=== PATIENT | female | born 1985 | race Caucasian/White ===

== ENCOUNTER 2016-09-07 21:58 | Observation (INO) ==
--- NOTE | 2016-09-07 22:40 | OB/GYN History & Physical ---
Date of Encounter: 09/07/16 Time of Encounter: 22:40 Assessment and Plan (1) with 24 completed weeks gestation Status: Acute ([id number]), 3 deliveries prior to 20 weeks, 1 viable delivery at 34 weeks with cerclage. 24w 6d Hx incompetent cervix; current cervical cerclage. May consider steroids May consider MgS May consider formal ultrasound to evaluate cervical length. May consider recommendation for follow-up tomorrow with her primary OB SSE is neg x 3. Cvx is closed and long on BME. Bedside u/s showed no funneling , cvx 52mm Will give Brethine 0.25mg sq. (2) contractions Status: Acute as above (3) Incompetence of cervix Status: Acute as above History of Present Illness Chief complaint: labor evaluation HPI: Ms. Fregoso is a 31 year old female presents from home with concerns regarding labor. ([id number]), 3 deliveries before 20weeks with demise, 1 viable delivery at 34w with cerclage. Hx incompetant cervix; current cervical cerclage. 24w 6d; due 22 December. Patient felt waves of contractions onset 11:00 this morning and continuous to presentation. Associated with sharp pain around her cerclage, "it feels like my cerglage is coming out." No vaginal bleeding, fluid, or discharge. OB: Dr. Mancini. [place], [place]. Past Med Surg Social Fam HX - Past Medical History Medical history: other Psychiatric history: no psych history - Social History Smoking Status: Current every day smoker Smokeless Tobacco Status: No Alcohol use: none Drug use: none - Family History Father Adopted: No Living Status: Still Living Hx Family Cardiac Disorders: Yes (heart attack) Hx Family Respiratory Disorders: No Hx Family Cancer: No Hx Family GI Disorders: No Hx Family Genitourinary Disorders: No Hx Family Endocrine Disorder: No Hx Family Musculoskeletal Disorders: No Hx Family Neuromuscular Disorders: No Hx Family Neurologic Disorders: No Hx Family HEENT Disorders: No Hx Family Autoimmune Disorders: No Hx Family Reproductive Disorders: No Hx Family Psychosocial Disorders: No Hx Family Medical Disorders: No Obstetrical History - Pregnancies : 5 Para: 4 Term: 0 : 1 Ab's: 3 Livin Medications and Allergies Budesonide [Entocort EC] 2 cap PO DAILY #10 capdr...er 02/15/16 [Rx] Ciprofloxacin HCl [Cipro] 500 mg PO BID #14 tablet 02/15/16 [Rx] Dicyclomine [Bentyl] 2 cap PO QID PRN #30 capsule 02/15/16 [Rx] MetroNIDAZOLE [Flagyl] 500 mg PO BID #14 tablet 02/15/16 [Rx] Prednisone 02/15/16 [History] Cephalexin [Keflex] 500 mg PO BID #14 capsule 04/28/16 [Rx] Ondansetron ODT [Zofran ODT] 4 mg SL Q6HR #12 tab.rapdis 04/28/16 [Rx] Nitrofurantoin (BID) [Macrobid] 100 mg PO BID #14 capsule 05/10/16 [Rx] Ondansetron ODT [Zofran ODT] 4 mg SL Q8HR PRN #15 tab.rapdis 05/10/16 [Rx] Benzonatate [Tessalon] 200 mg PO TID PRN #18 capsule 07/08/16 [Rx] Allergies No Known Allergies Allergy (Verified 02/15/16 19:06) Review of System OB - Constitutional Constitutional ROS IM: no fever(s), no headache(s) - Cardiovascular Cardiovascular: no dyspnea, no edema - Respiratory Respiratory: cough, no dyspnea - Genitourinary Genitourinary: no dysuria, no vaginal discharge Exam - Constitutional Constitutional: well developed, well nourished, no acute distress - HEENT HEENT: Normocephaly, Mucus Membranes Moist - Neck Neck exam: normal inspection - Lungs Respiratory exam: CTAB - Cardiovascular Cardiovascular exam: RRR, +S1, +S2 - Abdomen Abdomen: Present: bowel sounds normal, gravid, non tender. Absent: guarding noted Results All other labs normal.
[2016-09-07 22:55] LABS: Bilirubin,Urine Negative (Negative); Blood,Urine Negative (Negative); Clarity,Urine Turbid (Clear); Color,Urine Yellow (Yellow); Glucose,Urine (UA) Normal (Normal); Ketones,Urine Negative (Negative); Leukocyte Esterase,Urine Small (Negative); Nitrite,Urine Negative (Negative); Protein,Urine Negative (Neg-Trace); Specific Gravity,Urine 1.018 (1.010-1.025); Urobilinogen,Urine Normal (Normal)
[2016-09-07 22:58] LABS: Bacteria,Urine Moderate per hpf (None-Few); Hyaline Casts,Urine None Seen per lpf (None-Few); Squamous Epithelial Cell,Urine Many per lpf (None-Few)
[2016-09-07 23:18] LABS: Amorphous Sediment,Urine Many (Few); Calcium Oxalate Crystals,Urine Present
[2016-09-07 23:19] LABS: Renal Epithelial Cells,Urine Few per hpf (None-Few); Transitional Epi Cells,Urine Few per hpf (None-Few)
[2016-09-08] MEDS ORDERED: Terbutaline 1 MG/ML VIAL SQ ONE
== END 2016-09-08 01:04 | disposition home or self-care (01) ==
LOC: 1NENULAB
PROVIDERS: ADMIT Obstetrics & Gynecology; ATTEND Obstetrics & Gynecology

== ENCOUNTER 2016-09-15 01:17 | Observation (INO) ==
[2016-09-15 03:19] LABS: Bilirubin,Urine Negative (Negative); Blood,Urine Moderate (Negative); Clarity,Urine Clear (Clear); Color,Urine Yellow (Yellow); Glucose,Urine (UA) Normal (Normal); Ketones,Urine Negative (Negative); Leukocyte Esterase,Urine Negative (Negative); Nitrite,Urine Negative (Negative); Protein,Urine Trace mg/dL (Neg-Trace); Specific Gravity,Urine 1.028 (1.010-1.025); Urobilinogen,Urine Normal (Normal)
[2016-09-15 03:21] LABS: Bacteria,Urine Few per hpf (None-Few); Hyaline Casts,Urine None Seen per lpf (None-Few); Squamous Epithelial Cell,Urine Many per lpf (None-Few)
[2016-09-15] MEDS ORDERED: Ringers Solution, Lactated 1,000 ML IVC SCH (04:00)
--- NOTE | 2016-09-15 07:00 | OB/GYN Progress Note ---
Date of Encounter: 09/15/16 Time of Encounter: 06:54 - Assessment and Plan (1) 26 weeks gestation of Current Visit: Yes Status: Acute Receives care from Dr. Haque (2) Cervical cerclage suture present in second trimester Current Visit: Yes Status: Acute The patient has been receiving progesterone injections but has had an issue with receiving in the last 2 weeks. I advised the patient that if she is unable to receive them due to issues with prescription that she may be able to get vaginal progesterone suppositories mucinous instead. She will call the office to review her options (3) UTI (urinary tract infection) in in second trimester Current Visit: Yes Status: Acute Rocephin IV and IV hydration given. Patient appreciates resolution of symptoms Subjective - Subjective Principal diagnosis: 26 week Interval history: The patient presents for cerclage reporting that she is having sharp stabbing pains in the vaginal area and has had a brownish discharge. She has a cerclage in place and was seen last week. She is a patient of Dr. Haque's and no records are available. She denies loss of fluid. Fetus is active. She is not appreciating contractions. The patient is concerned because she has not her progesterone injections for 2 weeks because her prescription has run out and having issues with her OB office. Antepartum ROS: new complaints, vaginal bleeding, movement normal Objective - Vital Signs Vital Signs: Intake and Output 09/14/16 09/14/16 09/15/16 15:59 23:59 07:59 Other: Weight 72.4 kg Patient Weight 09/15/16 23:59 Weight 72.4 kg - Exam FHR: auscultation normal, category 1 FHR comments: 140s baseline Auscultation: bilateral: normal Abdomen: Present: normal appearance, soft, gravid. Absent: tenderness Comments: Brown d/c seen on panties on arrival, none seen since - Labs Labs: Abnormal lab results Ur Specific [place] 1.028 (1.010-1.025) H 09/15/16 03:00 Urine Blood Moderate (Negative) H 09/15/16 03:00 Urine Microscopic RBC 3-5 per hpf (0-3) H 09/15/16 03:00 Urine Microscopic WBC 5-15 per hpf (0-3) H 09/15/16 03:00 Ur Squamous Epith Cells Many per lpf (None-Few) H 09/15/16 03:00 Ur Culture Indicated? YES (NO) A 09/15/16 03:00
== END 2016-09-15 07:14 | disposition home or self-care (01) ==
LOC: 1NENULAB
PROVIDERS: ADMIT Obstetrics & Gynecology; ATTEND Obstetrics & Gynecology

== ENCOUNTER → 2016-11-08 23:39 | Observation (INO) ==
[2016-11-08 22:44] LABS: Bilirubin,Urine Small (Negative); Blood,Urine Negative (Negative); Clarity,Urine Cloudy (Clear); Color,Urine Yellow (Yellow); Glucose,Urine (UA) Normal (Normal); Ketones,Urine Negative (Negative); Leukocyte Esterase,Urine Moderate (Negative); Nitrite,Urine Negative (Negative); Protein,Urine 30 mg/dL (Neg-Trace); Specific Gravity,Urine 1.025 (1.010-1.025); Urobilinogen,Urine Normal (Normal)
[2016-11-08 22:46] LABS: Bacteria,Urine Many per hpf (None-Few); Hyaline Casts,Urine None Seen per lpf (None-Few); Squamous Epithelial Cell,Urine Many per lpf (None-Few); WBC,Urine 30-50 per hpf (0-3)
[2016-11-08 22:56] LABS: Amorphous Sediment,Urine Few (Few)
--- NOTE | 2016-11-08 23:42 | OB Labor Progress Note ---
Date of Encounter: 11/08/16 Time of Encounter: 23:40 Labor Progress Note - Subjective Subjective: patient presented to L and D for PPROM eval, patient evaluated and found not to be ruptured, patient also has a cerclage, NST reactive, counseled to follow up Rebecca
== END | disposition home or self-care (01) ==
LOC: 1NENULAB
PROVIDERS: ADMIT Student in an Organized Health Care Education/Training Program; ATTEND Student in an Organized Health Care Education/Training Program

== ENCOUNTER → 2016-12-13 20:50 | Observation (INO) ==
--- NOTE | 2016-12-13 20:40 | OB/GYN Progress Note ---
Date of Encounter: 12/13/16 Time of Encounter: 20:38 - Assessment and Plan (1) False labor Current Visit: Yes Status: Acute Subjective - Subjective Principal diagnosis: 38 weeks 5 days, possible rupture of membranes Interval history: Pt presents with possible rupture of membranes this am and pressure. +gfm, no vb or lof Objective - Vital Signs Vital Signs: Intake and Output 12/13/16 12/13/16 12/13/16 07:59 15:59 23:59 Other: Weight 76 kg Patient Weight 12/13/16 23:59 Weight 76 kg - Exam FHR: category 1 Auscultation: bilateral: normal Abdomen: Present: normal appearance Cervical dilation: 3 Cervix effacement: 80 station: -2 Comments: SSE is neg for pool and nitrazine
== END | disposition home or self-care (01) ==
LOC: 1NENULAB
PROVIDERS: ADMIT Obstetrics & Gynecology; ATTEND Obstetrics & Gynecology

== ENCOUNTER 2018-01-26 23:36 | Observation (INO) ==
[2018-01-27] MEDS ORDERED: Isovue-370 500 ML INFUS..BTL IV ONE (01:59)
--- NOTE | 2018-01-27 02:05 | Emergency Department Note ---
Disposition Clinical Impression: Phlegmon Abdominal pain Qualifiers: Abdominal location: lower abdomen, unspecified Qualified Code(s): R10.30 - Lower abdominal pain, unspecified Disposition: Still a Patient Condition: Fair Referrals: Erick Johns MD [Primary Care Provider] - Forms: ED Satisfaction Letter, Work/School Release Time of Disposition: 05:54 Abdominal Pain HPI - General Chief Complaint: ED Abdominal Pain Stated Complaint: ABD Pain Time Seen by Provider: 01/27/18 01:31 Source: patient Mode of arrival: ambulatory Limitations: no limitations Nursing Notes Reviewed: Yes Vital Signs Reviewed: Yes - History of Present Illness HPI Narrative: Nontoxic-appearing 32-year-old female presents for evaluation of diffuse lower abdominal pain and cramping. Symptoms began approximate 7 days ago. On 01/23/18 , she appeared at this emergency department for evaluation. At that time, she underwent laboratory and urinalysis testing which revealed a mild urinary tract infection. She does have a history of Crohn's. At the time of discharge on that day, she was given a three-day supply of Bactrim DS as well as a six-day burst of prednisone given her history of Crohn's. She states that the pain has worsened since that time. She denies any fever, chills, nausea, vomiting, urinary symptoms, vaginal bleeding, or vaginal discharge but does complain of some pelvic pressure that began earlier today. She denies any aggravating or alleviating factors for this pain. Pt Subjective Complaint: abdominal pain Onset (ago): day(s) (7) Location: LLQ, RLQ, suprapubic Pain Severity: moderate Pain Scale: 5 Quality: cramping Radiation: none Migration to: no migration Improves with: nothing Worsens with: nothing Associated symptoms: Denies: nausea, vomiting, diarrhea, fever, chills, constipation, dysuria, hematemesis, hematochezia, melena, hematuria Treatments prior to arrival: other - Related Data Home Medications Medication Instructions Recorded Confirmed Multivitamin [Flintstones] 1 each PO DAILY 12/13/16 12/13/16 Previous Rx's Medication Instructions Recorded Ibuprofen [Motrin] 800 mg PO Q8HR #30 tablet 06/04/17 Sulfamethoxazole/Trimeth DS 1 each PO BID #14 tablet 06/04/17 [Bactrim DS] Tramadol HCl [Ultram] 50 mg PO QID PRN #16 tab 06/04/17 Sulfamethoxazole/Trimeth DS 1 each PO BID 3 Days tablet 01/23/18 [Bactrim DS] predniSONE [PredniSONE] 40 mg PO DAILY 6 Days tablet 01/23/18 Allergies Allergy/AdvReac Type Severity Reaction Status Date / Time No Known Allergies Allergy Verified 01/26/18 23:50 All systems ED: reviewed and negative except as stated. Review of Systems: As Per HPI Constitutional: Denies: fever, chills, weakness, weight change Eyes: Denies: eye pain, eye discharge, vision change ENT ED: Denies: ear pain, throat pain, dental pain, hearing loss, epistaxis, congestion, dysphagia Cardiovascular: Denies: chest pain, palpitations, dyspnea on exertion, edema, syncope Respiratory: Denies: cough, dyspnea, wheezes, hemoptysis, stridor Gastrointestinal: Reports: as per HPI, abdominal pain. Denies: nausea, vomiting , diarrhea, constipation, hematemesis, melena, hematochezia Genitourinary: Denies: dysuria, frequency, hematuria, discharge Musculoskeletal: Denies: back pain, neck pain, arthralgia, myalgia Integumentary: Denies: rash, abrasion, lesions Neurological: Denies: headache, weakness, numbness, paresthesias, confusion, abnormal gait, vertigo Psychiatric: Denies: anxiety, depression, suicidal thoughts, homicidal thoughts , auditory hallucinations, visual hallucinations Endocrine: Denies: fatigue Hematological/Lymphatic: Denies: easy bleeding, easy bruising Allergic/Immunologic: Denies: facial swelling, urticaria Abdominal Pain PMH - Past Medical History Medical history: Reports: no medical history, other Female Surgical History: Reports: other YARN SALVAGER history: Reports: no YARN SALVAGER history Psychiatric history: Reports: no psych history - Social History Smoking status: Current every day smoker Alcohol use: Reports: none Drug use: Reports: none Physical Exam - General Limitations: no limitations General appearance: alert, in no apparent distress - Head Head exam: atraumatic, normocephalic, normal inspection - Eye Eye exam: Present: normal appearance, PERRL, EOMI. Absent: nystagmus - ENT ENT exam: mucous membranes moist - Neck Neck exam: Present: normal inspection, full ROM, trachea midline - Chest Chest inspection: Present: normal inspection, symmetric chest wall rise - Respiratory Respiratory exam: Present: normal lung sounds bilaterally - Cardiovascular Cardiovascular exam: Present: regular rate, normal rhythm, normal heart sounds - Abdominal Exam Abdominal exam: Present: soft, tenderness, normal bowel sounds. Absent: distention, guarding, rebound, rigidity Abdominal tenderness: Present: RLQ, LLQ, suprapubic, moderate - Female Bathing Suit Maker present during exam: Yes (BENJAMIN Rodrigues) External Exam: Present: normal external exam. Absent: erythema, bleeding, lesions Speculum Exam: Present: vaginal discharge (yellowish/white discharge noted in the vaginal vault), cervical discharge (Yellow/white cervical discharge noted). Absent: erythema, vaginal bleeding Bimanual Exam: Present: cervical motion tenderness, right adnexal tenderness, left adnexal tenderness. Absent: adnexal mass - Extremities Exam Extremities exam: Present: normal inspection, full ROM. Absent: tenderness, pedal edema - Neurological Exam Neurological exam: Present: alert, oriented X3 - Psychiatric Psychiatric exam: Present: normal affect, normal mood - Skin Skin exam: Present: warm, dry, intact, normal color. Absent: rash Course Vital Signs Temperature 98.5 F 01/26/18 23:50 Pulse Rate 106 01/26/18 23:50 Respiratory Rate 16 01/26/18 23:50 Blood Pressure 113/71 01/26/18 23:50 O2 Sat by Pulse Oximetry 98 01/26/18 23:50 Temperature 98.5 F 01/26/18 23:50 Pulse Rate 87 01/27/18 07:04 Respiratory Rate 18 01/27/18 07:04 Blood Pressure 92/54 01/27/18 07:04 O2 Sat by Pulse Oximetry 99 01/27/18 07:04 Oxygen Delivery Oxygen Delivery Room Air Abdominal Pain - Medical Records Medical records reviewed: Yes I reviewed the patient's medical records. - Lab Data Lab results reviewed: Yes I reviewed the patient's lab results. Result diagrams: 01/27/18 03:48 01/27/18 01:30 Lab Results 01/27/18 01/27/18 01/27/18 Range/Units 01:30 01:30 01:30 WBC (4.3-11.1) K/mcL RBC (3.82-4.97) M/mcL Hgb (11.5-15.4) g/dL Hct (35.3-44.9) % MCV (83.0-100.0) fL MCH (28.0-33.3) pg MCHC (31.6-35.5) g/dL RDW (11.5-14.5) % Plt Count (140-400) K/mcL MPV (9.4-12.4) fL Immature Gran % (0-4) % Seg Neutrophils % % Lymphocytes % % Monocytes % % Eosinophils % % Basophils % % Neutrophils # (1.6-8.9) K/mcL Lymphocytes # (0.6-4.6) K/mcL Monocytes # (0.0-1.3) K/mcL Eosinophils # (0.0-0.6) K/mcL Basophils # (0.0-0.2) K/mcL PT 11.5 (9.4-12.1) Seconds INR 1.0 APTT 30.1 (26.0-36.0) Seconds Sodium (136-145) mEq/L Potassium (3.5-5.1) mEq/L Chloride (98-107) mEq/L Carbon Dioxide (23-29) mEq/L BUN (6-20) mg/dL Creatinine (0.60-1.20) mg/dL Est GFR ( Amer) (> 60) Est GFR (Non-Af Amer) (> 60) BUN/Creatinine Ratio (6-26) Glucose (70-105) mg/dL Calculated Osmolality (280-300) Lactic Acid (0.5-2.2) mmol/L Calcium (8.6-10.3) mg/dL Total Bilirubin (0.3-1.0) mg/dL Direct Bilirubin (0.0-0.2) mg/dL Indirect Bilirubin (0.0-1.2) mg/dL AST (13-39) Units/L ALT (7-52) Units/L Alkaline Phosphatase (34-104) Units/L Serum Total Protein (6.4-8.9) g/dL Albumin (3.5-5.7) g/dL Globulin (2.4-3.5) g/dL Albumin/Globulin Ratio (1.1-2.2) Amylase (29-103) Units/L Lipase (11-82) Units/L Urine Color Yellow (Yellow) Urine Clarity Clear (Clear) Urine pH 5.0 (5.0-8.0) pH Units Ur Specific [place] 1.026 H (1.010-1.025) Urine Protein Trace (Neg-Trace) mg/dL Urine Glucose (UA) Normal (Normal) mg/dL Urine Ketones Negative (Negative) mg/dL Urine Blood Negative (Negative) Urine Nitrite Negative (Negative) Urine Bilirubin Small H (Negative) Urine Urobilinogen Normal (Normal) mg/dL Ur Leukocyte Esterase Negative (Negative) Urine Microscopic RBC 0-3 (0-3) per hpf Urine Microscopic WBC 5-15 H (0-3) per hpf Ur Squamous Epith Cells Many H (None-Few) per lpf Calcium Oxalate Crystal Present Urine Bacteria Few (None-Few) per hpf Hyaline Casts None Seen (None-Few) per lpf Urine Mucus Few (Few) Ur Culture Indicated? NO (NO) Urine Test Negative (Negative) Anisa species DNA (Not Detect) Ur C. trach DNA (PCR) (Not Detect) Gardnerella DNA Probe (Not Detect) U N.gonorrhoeae DNA PCR (Not Detect) Trichomonas DNA Probe (Not Detect) Specimen Rejected 01/27/18 01/27/18 01/27/18 Range/Units 01:30 01:30 02:17 WBC (4.3-11.1) K/mcL RBC (3.82-4.97) M/mcL Hgb (11.5-15.4) g/dL Hct (35.3-44.9) % MCV (83.0-100.0) fL MCH (28.0-33.3) pg MCHC (31.6-35.5) g/dL RDW (11.5-14.5) % Plt Count (140-400) K/mcL MPV (9.4-12.4) fL Immature Gran % (0-4) % Seg Neutrophils % % Lymphocytes % % Monocytes % % Eosinophils % % Basophils % % Neutrophils # (1.6-8.9) K/mcL Lymphocytes # (0.6-4.6) K/mcL Monocytes # (0.0-1.3) K/mcL Eosinophils # (0.0-0.6) K/mcL Basophils # (0.0-0.2) K/mcL PT (9.4-12.1) Seconds INR APTT (26.0-36.0) Seconds Sodium 135 L (136-145) mEq/L Potassium 3.9 (3.5-5.1) mEq/L Chloride 105 (98-107) mEq/L Carbon Dioxide 18 L (23-29) mEq/L BUN 10 (6-20) mg/dL Creatinine 0.54 L (0.60-1.20) mg/dL Est GFR ( Amer) > 60 (> 60) Est GFR (Non-Af Amer) > 60 (> 60) BUN/Creatinine Ratio 19 (6-26) Glucose 102 (70-105) mg/dL Calculated Osmolality 279 L (280-300) Lactic Acid (0.5-2.2) mmol/L Calcium 9.7 (8.6-10.3) mg/dL Total Bilirubin 0.3 (0.3-1.0) mg/dL Direct Bilirubin 0.1 (0.0-0.2) mg/dL Indirect Bilirubin 0.2 (0.0-1.2) mg/dL AST 17 (13-39) Units/L ALT 14 (7-52) Units/L Alkaline Phosphatase 95 (34-104) Units/L Serum Total Protein 7.3 (6.4-8.9) g/dL Albumin 4.0 (3.5-5.7) g/dL Globulin 3.3 (2.4-3.5) g/dL Albumin/Globulin Ratio 1.2 (1.1-2.2) Amylase 31 (29-103) Units/L Lipase 34 (11-82) Units/L Urine Color (Yellow) Urine Clarity (Clear) Urine pH (5.0-8.0) pH Units Ur Specific [place] (1.010-1.025) Urine Protein (Neg-Trace) mg/dL Urine Glucose (UA) (Normal) mg/dL Urine Ketones (Negative) mg/dL Urine Blood (Negative) Urine Nitrite (Negative) Urine Bilirubin (Negative) Urine Urobilinogen (Normal) mg/dL Ur Leukocyte Esterase (Negative) Urine Microscopic RBC (0-3) per hpf Urine Microscopic WBC (0-3) per hpf Ur Squamous Epith Cells (None-Few) per lpf Calcium Oxalate Crystal Urine Bacteria (None-Few) per hpf Hyaline Casts (None-Few) per lpf Urine Mucus (Few) Ur Culture Indicated? (NO) Urine Test (Negative) Anisa species DNA (Not Detect) Ur C. trach DNA (PCR) NOT DETECTED (Not Detect) Gardnerella DNA Probe (Not Detect) U N.gonorrhoeae DNA PCR NOT DETECTED (Not Detect) Trichomonas DNA Probe (Not Detect) Specimen Rejected Clotted 01/27/18 01/27/18 01/27/18 Range/Units 02:49 03:48 03:48 WBC 10.9 (4.3-11.1) K/mcL RBC 3.52 L (3.82-4.97) M/mcL Hgb 10.6 L (11.5-15.4) g/dL Hct 32.2 L (35.3-44.9) % MCV 91.5 (83.0-100.0) fL MCH 30.1 (28.0-33.3) pg MCHC 32.9 (31.6-35.5) g/dL RDW 13.3 (11.5-14.5) % Plt Count 331 (140-400) K/mcL MPV 9.8 (9.4-12.4) fL Immature Gran % 0.2 (0-4) % Seg Neutrophils % 61.2 % Lymphocytes % 29.4 % Monocytes % 6.0 % Eosinophils % 2.7 % Basophils % 0.5 % Neutrophils # 6.7 (1.6-8.9) K/mcL Lymphocytes # 3.2 (0.6-4.6) K/mcL Monocytes # 0.7 (0.0-1.3) K/mcL Eosinophils # 0.3 (0.0-0.6) K/mcL Basophils # 0.1 (0.0-0.2) K/mcL PT (9.4-12.1) Seconds INR APTT (26.0-36.0) Seconds Sodium (136-145) mEq/L Potassium (3.5-5.1) mEq/L Chloride (98-107) mEq/L Carbon Dioxide (23-29) mEq/L BUN (6-20) mg/dL Creatinine (0.60-1.20) mg/dL Est GFR ( Amer) (> 60) Est GFR (Non-Af Amer) (> 60) BUN/Creatinine Ratio (6-26) Glucose (70-105) mg/dL Calculated Osmolality (280-300) Lactic Acid 1.2 (0.5-2.2) mmol/L Calcium (8.6-10.3) mg/dL Total Bilirubin (0.3-1.0) mg/dL Direct Bilirubin (0.0-0.2) mg/dL Indirect Bilirubin (0.0-1.2) mg/dL AST (13-39) Units/L ALT (7-52) Units/L Alkaline Phosphatase (34-104) Units/L Serum Total Protein (6.4-8.9) g/dL Albumin (3.5-5.7) g/dL Globulin (2.4-3.5) g/dL Albumin/Globulin Ratio (1.1-2.2) Amylase (29-103) Units/L Lipase (11-82) Units/L Urine Color (Yellow) Urine Clarity (Clear) Urine pH (5.0-8.0) pH Units Ur Specific [place] (1.010-1.025) Urine Protein (Neg-Trace) mg/dL Urine Glucose (UA) (Normal) mg/dL Urine Ketones (Negative) mg/dL Urine Blood (Negative) Urine Nitrite (Negative) Urine Bilirubin (Negative) Urine Urobilinogen (Normal) mg/dL Ur Leukocyte Esterase (Negative) Urine Microscopic RBC (0-3) per hpf Urine Microscopic WBC (0-3) per hpf Ur Squamous Epith Cells (None-Few) per lpf Calcium Oxalate Crystal Urine Bacteria (None-Few) per hpf Hyaline Casts (None-Few) per lpf Urine Mucus (Few) Ur Culture Indicated? (NO) Urine Test (Negative) Anisa species DNA Not Detected (Not Detect) Ur C. trach DNA (PCR) (Not Detect) Gardnerella DNA Probe Not Detected (Not Detect) U N.gonorrhoeae DNA PCR (Not Detect) Trichomonas DNA Probe Not Detected (Not Detect) Specimen Rejected - Radiology Data Radiology results reviewed: Yes I reviewed the patient's radiology results. S.B.A.R. - S.B.A.R. Situation: Demographics, MOA Background: Presenting Complaint, Relevant PMH, Meds, & Allergies Assessment: Vital Signs, Course and respsone to treatment, Exam Concerns, Patient/Family Expectation, Pertinant Lab Results, Outstanding Labs Recommendation: Barrier(s) to disposition, Recommendation based on pending studies, treatments, or consults S.B.A.R. Report Given to: Flaco Hood CNP S.B.A.R. Repor Time: 06:00 Attestation Statement - Attestation Attestation: I, Fermín Wilkins DO have provided [id number] time during the care of this patient. Detailed review the presentation, symptoms, medical history were discussed and reviewed with the mid-level provider Mark Cuellar PA-C/NADER. Medical intervention labs and imaging studies were reviewed in detail. See full documentation of physical exam and course of care in the mid-level provider's note. I agree with the determined course of care, medical intervention and disposition put forth by the mid-level provider. See below documentation for changes or alterations in documentation.
[2018-01-27 02:12] LABS: Bilirubin,Urine Small (Negative); Blood,Urine Negative (Negative); Clarity,Urine Clear (Clear); Color,Urine Yellow (Yellow); Glucose,Urine (UA) Normal (Normal); Ketones,Urine Negative (Negative); Leukocyte Esterase,Urine Negative (Negative); Nitrite,Urine Negative (Negative); Protein,Urine Trace mg/dL (Neg-Trace); Specific Gravity,Urine 1.026 (1.010-1.025); Urobilinogen,Urine Normal (Normal)
[2018-01-27 02:15] LABS: Bacteria,Urine Few per hpf (None-Few); Hyaline Casts,Urine None Seen per lpf (None-Few); Squamous Epithelial Cell,Urine Many per lpf (None-Few)
[2018-01-27 02:20] LABS: Prothrombin Time 11.5 Seconds (9.4-12.1)
[2018-01-27 02:23] LABS: Activated Partial Thrombo Time 30.1 Seconds (26.0-36.0)
[2018-01-27 02:26] LABS: Calcium Oxalate Crystals,Urine Present; Mucus,Urine Few (Few); RBC,Urine 0-3 per hpf (0-3)
[2018-01-27 03:10] LABS: Alanine Aminotransferase 14 Units/L (7-52); Albumin/Globulin Ratio 1.2 (1.1-2.2); Alkaline Phosphatase 95 Units/L (34-104); Amylase 31 Units/L (29-103); Aspartate Amino Transferase 17 Units/L (13-39); BUN/Creatinine Ratio 19 (6-26); Bilirubin,Direct 0.1 mg/dL (0.0-0.2); Bilirubin,Indirect 0.2 mg/dL (0.0-1.2); Bilirubin,Total 0.3 mg/dL (0.3-1.0); Blood Urea Nitrogen 10 mg/dL (6-20); Calcium 9.7 mg/dL (8.6-10.3); Carbon Dioxide 18 mEq/L (23-29); Chloride 105 mEq/L (98-107); Globulin 3.3 g/dL (2.4-3.5); Glucose 102 mg/dL (70-105); Lipase 34 Units/L (11-82); Osmolality,Calculated 279 (280-300); Potassium 3.9 mEq/L (3.5-5.1); Sodium 135 mEq/L (136-145); Total Protein 7.3 g/dL (6.4-8.9); eGFR For Non-African Americans > 60 (> 60)
[2018-01-27 03:55] LABS: Candida DNA Not Detected (Not Detect); Gardnerella DNA Not Detected (Not Detect); Trichomonas DNA Not Detected (Not Detect)
[2018-01-27 04:02] LABS: Basophils # 0.1 K/mcL (0.0-0.2); Basophils % 0.5 %; Eosinophils # 0.3 K/mcL (0.0-0.6); Eosinophils % 2.7 %; Hematocrit 32.2 % (35.3-44.9); Hemoglobin 10.6 g/dL (11.5-15.4); Immature Granulocytes % 0.2 % (0-4); Lymphocytes # 3.2 K/mcL (0.6-4.6); Lymphocytes % 29.4 %; Mean Corpuscular HGB Conc 32.9 g/dL (31.6-35.5); Mean Corpuscular Hemoglobin 30.1 pg (28.0-33.3); Mean Corpuscular Volume 91.5 fL (83.0-100.0); Mean Platelet Volume 9.8 fL (9.4-12.4); Monocytes # 0.7 K/mcL (0.0-1.3); Neutrophils # 6.7 K/mcL (1.6-8.9); Platelet Count 331 K/mcL (140-400); Red Blood Count 3.52 M/mcL (3.82-4.97); Red Cell Distribution Width 13.3 % (11.5-14.5); Segmented Neutrophils % 61.2 %
--- NOTE | 2018-01-27 04:13 | Emergency Department Note ---
Disposition Clinical Impression: Phlegmon Abdominal pain Qualifiers: Abdominal location: lower abdomen, unspecified Qualified Code(s): R10.30 - Lower abdominal pain, unspecified Disposition: Still a Patient Condition: Fair Referrals: Erick Johns MD [Primary Care Provider] - Forms: ED Satisfaction Letter, Work/School Release Time of Disposition: 07:41 General Adult HPI - General Chief complaint: ED Abdominal Pain Stated complaint: ABD Pain Time Seen by Provider: 01/27/18 01:31 Source: patient Mode of arrival: ambulatory Limitations: no limitations - History of Present Illness Pain Scale: 5 - Related Data Home Medications Medication Instructions Recorded Confirmed Multivitamin [Flintstones] 1 each PO DAILY 12/13/16 12/13/16 Previous Rx's Medication Instructions Recorded Ibuprofen [Motrin] 800 mg PO Q8HR #30 tablet 06/04/17 Sulfamethoxazole/Trimeth DS 1 each PO BID #14 tablet 06/04/17 [Bactrim DS] Tramadol HCl [Ultram] 50 mg PO QID PRN #16 tab 06/04/17 Sulfamethoxazole/Trimeth DS 1 each PO BID 3 Days tablet 01/23/18 [Bactrim DS] predniSONE [PredniSONE] 40 mg PO DAILY 6 Days tablet 01/23/18 Allergies Allergy/AdvReac Type Severity Reaction Status Date / Time No Known Allergies Allergy Verified 01/26/18 23:50 Constitutional: Denies: fever, chills, weakness, weight change Eyes: Denies: eye pain, eye discharge, vision change ENT ED: Denies: ear pain, throat pain, dental pain, hearing loss, epistaxis, congestion, dysphagia Cardiovascular: Denies: chest pain, palpitations, dyspnea on exertion, edema, syncope Respiratory: Denies: cough, dyspnea, wheezes, hemoptysis, stridor Gastrointestinal: Reports: as per HPI, abdominal pain. Denies: nausea, vomiting , diarrhea, constipation, hematemesis, melena, hematochezia Genitourinary: Denies: dysuria, frequency, hematuria, discharge Musculoskeletal: Denies: back pain, neck pain, arthralgia, myalgia Integumentary: Denies: rash, abrasion, lesions Neurological: Denies: headache, weakness, numbness, paresthesias, confusion, abnormal gait, vertigo Psychiatric: Denies: anxiety, depression, suicidal thoughts, homicidal thoughts , auditory hallucinations, visual hallucinations Endocrine: Denies: fatigue Hematological/Lymphatic: Denies: easy bleeding, easy bruising Allergic/Immunologic: Denies: facial swelling, urticaria Past Medical History - Past Medical History Medical history: Reports: no medical history, other Surgical history: Reports: no surgical history Psychiatric history: Reports: no psych history RIG MANAGER history: Reports: no RIG MANAGER history - Social History Smoking Status: Current every day smoker Smokeless Tobacco Status: No Alcohol use: Reports: none Drug use: Reports: none Physical Exam - General Limitations: no limitations General appearance: alert, in no apparent distress Course Vital Signs Temperature 98.5 F 01/26/18 23:50 Pulse Rate 106 01/26/18 23:50 Respiratory Rate 16 01/26/18 23:50 Blood Pressure 113/71 01/26/18 23:50 O2 Sat by Pulse Oximetry 98 01/26/18 23:50 Temperature 98.5 F 01/26/18 23:50 Pulse Rate 87 01/27/18 07:04 Respiratory Rate 18 01/27/18 07:04 Blood Pressure 92/54 01/27/18 07:04 O2 Sat by Pulse Oximetry 99 01/27/18 07:04 Oxygen Delivery Oxygen Delivery Room Air Medical Decision Making - Lab Data Result diagrams: 01/27/18 03:48 01/27/18 01:30 Lab Results 01/27/18 01/27/18 01/27/18 Range/Units 01:30 01:30 01:30 WBC (4.3-11.1) K/mcL RBC (3.82-4.97) M/mcL Hgb (11.5-15.4) g/dL Hct (35.3-44.9) % MCV (83.0-100.0) fL MCH (28.0-33.3) pg MCHC (31.6-35.5) g/dL RDW (11.5-14.5) % Plt Count (140-400) K/mcL MPV (9.4-12.4) fL Immature Gran % (0-4) % Seg Neutrophils % % Lymphocytes % % Monocytes % % Eosinophils % % Basophils % % Neutrophils # (1.6-8.9) K/mcL Lymphocytes # (0.6-4.6) K/mcL Monocytes # (0.0-1.3) K/mcL Eosinophils # (0.0-0.6) K/mcL Basophils # (0.0-0.2) K/mcL PT 11.5 (9.4-12.1) Seconds INR 1.0 APTT 30.1 (26.0-36.0) Seconds Sodium (136-145) mEq/L Potassium (3.5-5.1) mEq/L Chloride (98-107) mEq/L Carbon Dioxide (23-29) mEq/L BUN (6-20) mg/dL Creatinine (0.60-1.20) mg/dL Est GFR ( Amer) (> 60) Est GFR (Non-Af Amer) (> 60) BUN/Creatinine Ratio (6-26) Glucose (70-105) mg/dL Calculated Osmolality (280-300) Lactic Acid (0.5-2.2) mmol/L Calcium (8.6-10.3) mg/dL Total Bilirubin (0.3-1.0) mg/dL Direct Bilirubin (0.0-0.2) mg/dL Indirect Bilirubin (0.0-1.2) mg/dL AST (13-39) Units/L ALT (7-52) Units/L Alkaline Phosphatase (34-104) Units/L Serum Total Protein (6.4-8.9) g/dL Albumin (3.5-5.7) g/dL Globulin (2.4-3.5) g/dL Albumin/Globulin Ratio (1.1-2.2) Amylase (29-103) Units/L Lipase (11-82) Units/L Urine Color Yellow (Yellow) Urine Clarity Clear (Clear) Urine pH 5.0 (5.0-8.0) pH Units Ur Specific [place] 1.026 H (1.010-1.025) Urine Protein Trace (Neg-Trace) mg/dL Urine Glucose (UA) Normal (Normal) mg/dL Urine Ketones Negative (Negative) mg/dL Urine Blood Negative (Negative) Urine Nitrite Negative (Negative) Urine Bilirubin Small H (Negative) Urine Urobilinogen Normal (Normal) mg/dL Ur Leukocyte Esterase Negative (Negative) Urine Microscopic RBC 0-3 (0-3) per hpf Urine Microscopic WBC 5-15 H (0-3) per hpf Ur Squamous Epith Cells Many H (None-Few) per lpf Calcium Oxalate Crystal Present Urine Bacteria Few (None-Few) per hpf Hyaline Casts None Seen (None-Few) per lpf Urine Mucus Few (Few) Ur Culture Indicated? NO (NO) Urine Test Negative (Negative) Anisa species DNA (Not Detect) Ur C. trach DNA (PCR) (Not Detect) Gardnerella DNA Probe (Not Detect) U N.gonorrhoeae DNA PCR (Not Detect) Trichomonas DNA Probe (Not Detect) Specimen Rejected 01/27/18 01/27/18 01/27/18 Range/Units 01:30 01:30 02:17 WBC (4.3-11.1) K/mcL RBC (3.82-4.97) M/mcL Hgb (11.5-15.4) g/dL Hct (35.3-44.9) % MCV (83.0-100.0) fL MCH (28.0-33.3) pg MCHC (31.6-35.5) g/dL RDW (11.5-14.5) % Plt Count (140-400) K/mcL MPV (9.4-12.4) fL Immature Gran % (0-4) % Seg Neutrophils % % Lymphocytes % % Monocytes % % Eosinophils % % Basophils % % Neutrophils # (1.6-8.9) K/mcL Lymphocytes # (0.6-4.6) K/mcL Monocytes # (0.0-1.3) K/mcL Eosinophils # (0.0-0.6) K/mcL Basophils # (0.0-0.2) K/mcL PT (9.4-12.1) Seconds INR APTT (26.0-36.0) Seconds Sodium 135 L (136-145) mEq/L Potassium 3.9 (3.5-5.1) mEq/L Chloride 105 (98-107) mEq/L Carbon Dioxide 18 L (23-29) mEq/L BUN 10 (6-20) mg/dL Creatinine 0.54 L (0.60-1.20) mg/dL Est GFR ( Amer) > 60 (> 60) Est GFR (Non-Af Amer) > 60 (> 60) BUN/Creatinine Ratio 19 (6-26) Glucose 102 (70-105) mg/dL Calculated Osmolality 279 L (280-300) Lactic Acid (0.5-2.2) mmol/L Calcium 9.7 (8.6-10.3) mg/dL Total Bilirubin 0.3 (0.3-1.0) mg/dL Direct Bilirubin 0.1 (0.0-0.2) mg/dL Indirect Bilirubin 0.2 (0.0-1.2) mg/dL AST 17 (13-39) Units/L ALT 14 (7-52) Units/L Alkaline Phosphatase 95 (34-104) Units/L Serum Total Protein 7.3 (6.4-8.9) g/dL Albumin 4.0 (3.5-5.7) g/dL Globulin 3.3 (2.4-3.5) g/dL Albumin/Globulin Ratio 1.2 (1.1-2.2) Amylase 31 (29-103) Units/L Lipase 34 (11-82) Units/L Urine Color (Yellow) Urine Clarity (Clear) Urine pH (5.0-8.0) pH Units Ur Specific [place] (1.010-1.025) Urine Protein (Neg-Trace) mg/dL Urine Glucose (UA) (Normal) mg/dL Urine Ketones (Negative) mg/dL Urine Blood (Negative) Urine Nitrite (Negative) Urine Bilirubin (Negative) Urine Urobilinogen (Normal) mg/dL Ur Leukocyte Esterase (Negative) Urine Microscopic RBC (0-3) per hpf Urine Microscopic WBC (0-3) per hpf Ur Squamous Epith Cells (None-Few) per lpf Calcium Oxalate Crystal Urine Bacteria (None-Few) per hpf Hyaline Casts (None-Few) per lpf Urine Mucus (Few) Ur Culture Indicated? (NO) Urine Test (Negative) Anisa species DNA (Not Detect) Ur C. trach DNA (PCR) NOT DETECTED (Not Detect) Gardnerella DNA Probe (Not Detect) U N.gonorrhoeae DNA PCR NOT DETECTED (Not Detect) Trichomonas DNA Probe (Not Detect) Specimen Rejected Clotted 01/27/18 01/27/18 01/27/18 Range/Units 02:49 03:48 03:48 WBC 10.9 (4.3-11.1) K/mcL RBC 3.52 L (3.82-4.97) M/mcL Hgb 10.6 L (11.5-15.4) g/dL Hct 32.2 L (35.3-44.9) % MCV 91.5 (83.0-100.0) fL MCH 30.1 (28.0-33.3) pg MCHC 32.9 (31.6-35.5) g/dL RDW 13.3 (11.5-14.5) % Plt Count 331 (140-400) K/mcL MPV 9.8 (9.4-12.4) fL Immature Gran % 0.2 (0-4) % Seg Neutrophils % 61.2 % Lymphocytes % 29.4 % Monocytes % 6.0 % Eosinophils % 2.7 % Basophils % 0.5 % Neutrophils # 6.7 (1.6-8.9) K/mcL Lymphocytes # 3.2 (0.6-4.6) K/mcL Monocytes # 0.7 (0.0-1.3) K/mcL Eosinophils # 0.3 (0.0-0.6) K/mcL Basophils # 0.1 (0.0-0.2) K/mcL PT (9.4-12.1) Seconds INR APTT (26.0-36.0) Seconds Sodium (136-145) mEq/L Potassium (3.5-5.1) mEq/L Chloride (98-107) mEq/L Carbon Dioxide (23-29) mEq/L BUN (6-20) mg/dL Creatinine (0.60-1.20) mg/dL Est GFR ( Amer) (> 60) Est GFR (Non-Af Amer) (> 60) BUN/Creatinine Ratio (6-26) Glucose (70-105) mg/dL Calculated Osmolality (280-300) Lactic Acid 1.2 (0.5-2.2) mmol/L Calcium (8.6-10.3) mg/dL Total Bilirubin (0.3-1.0) mg/dL Direct Bilirubin (0.0-0.2) mg/dL Indirect Bilirubin (0.0-1.2) mg/dL AST (13-39) Units/L ALT (7-52) Units/L Alkaline Phosphatase (34-104) Units/L Serum Total Protein (6.4-8.9) g/dL Albumin (3.5-5.7) g/dL Globulin (2.4-3.5) g/dL Albumin/Globulin Ratio (1.1-2.2) Amylase (29-103) Units/L Lipase (11-82) Units/L Urine Color (Yellow) Urine Clarity (Clear) Urine pH (5.0-8.0) pH Units Ur Specific [place] (1.010-1.025) Urine Protein (Neg-Trace) mg/dL Urine Glucose (UA) (Normal) mg/dL Urine Ketones (Negative) mg/dL Urine Blood (Negative) Urine Nitrite (Negative) Urine Bilirubin (Negative) Urine Urobilinogen (Normal) mg/dL Ur Leukocyte Esterase (Negative) Urine Microscopic RBC (0-3) per hpf Urine Microscopic WBC (0-3) per hpf Ur Squamous Epith Cells (None-Few) per lpf Calcium Oxalate Crystal Urine Bacteria (None-Few) per hpf Hyaline Casts (None-Few) per lpf Urine Mucus (Few) Ur Culture Indicated? (NO) Urine Test (Negative) Anisa species DNA Not Detected (Not Detect) Ur C. trach DNA (PCR) (Not Detect) Gardnerella DNA Probe Not Detected (Not Detect) U N.gonorrhoeae DNA PCR (Not Detect) Trichomonas DNA Probe Not Detected (Not Detect) Specimen Rejected Attestation Statement - Attestation Attestation: I, Fermín Wilkins DO have provided [id number] time during the care of this patient. Detailed review the presentation, symptoms, medical history were discussed and reviewed with the mid-level provider Mark Cuellar PA-C/BUSINESS CONTINUITY MANAGEMENT DIRECTOR. Medical intervention labs and imaging studies were reviewed in detail. See full documentation of physical exam and course of care in the mid-level provider's note. I agree with the determined course of care, medical intervention and disposition put forth by the mid-level provider. See below documentation for changes or alterations in documentation. 32-year-old female presents to the emergency room for evaluation of abdominal pain. She was seen here 2 days ago for similar issue. She was discharged home after labs are resulted and they are unremarkable. Patient has had progressively worsening pain at this time decided to come back into the emergency room for reevaluation. Vital signs are stable. Lungs are clear heart is regular abdomen is soft patient does have suprapubic and bilateral adnexal discomfort and tenderness. She denies any specific vaginal discharge she has no concern for sexual transmitted diseases this time. test was negative previously. Screening labs including a CBC chemistry urinalysis and test will be ordered at this time as well as CT imaging the abdomen and ultrasound ruling out ovarian cyst versus torsion. Pelvic examination will be completed swabs looking for sexual transmitted diseases bacterial vaginosis. Concern is noted for intra-abdominal pathology including appendicitis tubo-ovarian abscess or ovarian cyst ovarian torsion PID associated transmitted diseases cervicitis this time. Disposition pending the full workup and treatment course. The remainder the physical exam is unremarkable. Pelvic examination completed by the mid-level provider see her documentation. See detailed recommendation physical exam, medical intervention , medical decision-making and disposition in the mid-level provider's note. No current local care pad the patient's treatment course at this time. 0700 Ultrasound is unremarkable for acute signs of ovarian cyst or torsion. No other acute intra-abdominal etiology noted during ultrasound evaluation. CT is concerning for phlegmon versus inflammatory issues:. Patient will be contacted and discussed and reviewed with the on-call surgeon the recommendations will be noted. IV antibiotics and fluids have been given. Blood cultures ready ordered. Disposition to be determined by the daytime physician mid-level provider. No other acute intervention required at this time. Patient otherwise clinically stable. Pain medication has been given
[2018-01-27 04:30] LABS: Chlamydia Trachomatis DNA Ur NOT DETECTED (Not Detect)
[2018-01-27] MEDS ORDERED: MetroNIDAZOLE 500 MG/100 ML 500 MG/100 ML BAG IVPB ONE (06:13)
[2018-01-27] MEDS ORDERED: *HR* FentaNYL (PF) 100 MCG/2 ML VIAL IVP ONE (06:27)
[2018-01-27] MEDS ORDERED: Ketorolac 30 MG/ML VIAL IVP ONE (06:28)
--- NOTE | 2018-01-27 06:38 | Emergency Department Note ---
Disposition Clinical Impression: Phlegmon Abdominal pain Qualifiers: Abdominal location: lower abdomen, unspecified Qualified Code(s): R10.30 - Lower abdominal pain, unspecified Disposition: Admitted As Inpatient Condition: Fair Referrals: Erick Johns MD [Primary Care Provider] - Forms: ED Satisfaction Letter, Work/School Release Abdominal Pain HPI - General Chief Complaint: ED Abdominal Pain Stated Complaint: ABD Pain Time Seen by Provider: 01/27/18 01:31 Source: patient Mode of arrival: ambulatory - History of Present Illness Pt Subjective Complaint: abdominal pain Location: LLQ, RLQ, suprapubic Pain Severity: moderate Pain Scale: 5 Quality: cramping Migration to: no migration Improves with: nothing Worsens with: nothing Associated symptoms: Denies: nausea, vomiting, diarrhea, fever, chills, constipation, dysuria, hematemesis, hematochezia, melena, hematuria - Related Data Home Medications Medication Instructions Recorded Confirmed No Known Home Drugs 01/27/18 01/27/18 Allergies Allergy/AdvReac Type Severity Reaction Status Date / Time No Known Allergies Allergy Verified 01/26/18 23:50 Constitutional: Denies: fever, chills, weakness, weight change Eyes: Denies: eye pain, eye discharge, vision change ENT ED: Denies: ear pain, throat pain, dental pain, hearing loss, epistaxis, congestion, dysphagia Cardiovascular: Denies: chest pain, palpitations, dyspnea on exertion, edema, syncope Respiratory: Denies: cough, dyspnea, wheezes, hemoptysis, stridor Gastrointestinal: Reports: as per HPI, abdominal pain. Denies: nausea, vomiting , diarrhea, constipation, hematemesis, melena, hematochezia Genitourinary: Denies: dysuria, frequency, hematuria, discharge Musculoskeletal: Denies: back pain, neck pain, arthralgia, myalgia Integumentary: Denies: rash, abrasion, lesions Neurological: Denies: headache, weakness, numbness, paresthesias, confusion, abnormal gait, vertigo Psychiatric: Denies: anxiety, depression, suicidal thoughts, homicidal thoughts , auditory hallucinations, visual hallucinations Endocrine: Denies: fatigue Hematological/Lymphatic: Denies: easy bleeding, easy bruising Allergic/Immunologic: Denies: facial swelling, urticaria Abdominal Pain PMH - Past Medical History Medical history: Reports: no medical history, other Female Surgical History: 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: other 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 HAND history: Reports: no SHANK CEMENTER HAND history Psychiatric history: Reports: no psych history - Social History Smoking status: Current every day smoker Alcohol use: Reports: none Drug use: Reports: none Physical Exam - General Limitations: no limitations General appearance: alert, in no apparent distress Course Vital Signs Temperature 98.5 F 01/26/18 23:50 Pulse Rate 106 01/26/18 23:50 Respiratory Rate 16 01/26/18 23:50 Blood Pressure 113/71 01/26/18 23:50 O2 Sat by Pulse Oximetry 98 01/26/18 23:50 Temperature 98.5 F 01/26/18 23:50 Pulse Rate 70 01/27/18 08:03 Respiratory Rate 18 01/27/18 07:04 Blood Pressure 101/72 01/27/18 08:03 O2 Sat by Pulse Oximetry 100 01/27/18 08:03 Oxygen Delivery Oxygen Delivery Room Air Abdominal Pain - MDM Narrative Medical decision making narrative: Received report from Aureliano Cuellar EMERGENCY DISPATCH OPERATOR: 32 year old female with history of Crohn' s disease presents with lower abdominal pain for 2 weeks worsening for 2 days. No nausea/vomiting. No constipation/diarrhea. No chills and fever. Pt follows up with Dr. Garibay for Crohn's disease. Last time colonoscopy was in 2011. Physical exam: diffused lower abdomen tender. Abd CT: possibly with a small area phlegmon. Pt is given IV antibiotics in ER, [facility] general surgeon. 07:45 am, discussed the case with general surgeon Dr. Reddy. He recommended to admit pt to medical floor for IV antibiotics and hydration. He will re-evaluate pt in floor. He also suggested GI consult. Hospitalist ryan. 08:20 am spoke with Hospitalist Dr. Alejandro. pt is accepted. - Lab Data Result diagrams: 01/27/18 03:48 01/27/18 01:30 Lab Results 01/27/18 01/27/18 01/27/18 Range/Units 01:30 01:30 01:30 WBC (4.3-11.1) K/mcL RBC (3.82-4.97) M/mcL Hgb (11.5-15.4) g/dL Hct (35.3-44.9) % MCV (83.0-100.0) fL MCH (28.0-33.3) pg MCHC (31.6-35.5) g/dL RDW (11.5-14.5) % Plt Count (140-400) K/mcL MPV (9.4-12.4) fL Immature Gran % (0-4) % Seg Neutrophils % % Lymphocytes % % Monocytes % % Eosinophils % % Basophils % % Neutrophils # (1.6-8.9) K/mcL Lymphocytes # (0.6-4.6) K/mcL Monocytes # (0.0-1.3) K/mcL Eosinophils # (0.0-0.6) K/mcL Basophils # (0.0-0.2) K/mcL PT 11.5 (9.4-12.1) Seconds INR 1.0 APTT 30.1 (26.0-36.0) Seconds Sodium (136-145) mEq/L Potassium (3.5-5.1) mEq/L Chloride (98-107) mEq/L Carbon Dioxide (23-29) mEq/L BUN (6-20) mg/dL Creatinine (0.60-1.20) mg/dL Est GFR ( Amer) (> 60) Est GFR (Non-Af Amer) (> 60) BUN/Creatinine Ratio (6-26) Glucose (70-105) mg/dL Calculated Osmolality (280-300) Lactic Acid (0.5-2.2) mmol/L Calcium (8.6-10.3) mg/dL Total Bilirubin (0.3-1.0) mg/dL Direct Bilirubin (0.0-0.2) mg/dL Indirect Bilirubin (0.0-1.2) mg/dL AST (13-39) Units/L ALT (7-52) Units/L Alkaline Phosphatase (34-104) Units/L Serum Total Protein (6.4-8.9) g/dL Albumin (3.5-5.7) g/dL Globulin (2.4-3.5) g/dL Albumin/Globulin Ratio (1.1-2.2) Amylase (29-103) Units/L Lipase (11-82) Units/L Urine Color Yellow (Yellow) Urine Clarity Clear (Clear) Urine pH 5.0 (5.0-8.0) pH Units Ur Specific [place] 1.026 H (1.010-1.025) Urine Protein Trace (Neg-Trace) mg/dL Urine Glucose (UA) Normal (Normal) mg/dL Urine Ketones Negative (Negative) mg/dL Urine Blood Negative (Negative) Urine Nitrite Negative (Negative) Urine Bilirubin Small H (Negative) Urine Urobilinogen Normal (Normal) mg/dL Ur Leukocyte Esterase Negative (Negative) Urine Microscopic RBC 0-3 (0-3) per hpf Urine Microscopic WBC 5-15 H (0-3) per hpf Ur Squamous Epith Cells Many H (None-Few) per lpf Calcium Oxalate Crystal Present Urine Bacteria Few (None-Few) per hpf Hyaline Casts None Seen (None-Few) per lpf Urine Mucus Few (Few) Ur Culture Indicated? NO (NO) Urine Test Negative (Negative) Anisa species DNA (Not Detect) Ur C. trach DNA (PCR) (Not Detect) Gardnerella DNA Probe (Not Detect) U N.gonorrhoeae DNA PCR (Not Detect) Trichomonas DNA Probe (Not Detect) Specimen Rejected 01/27/18 01/27/18 01/27/18 Range/Units 01:30 01:30 02:17 WBC (4.3-11.1) K/mcL RBC (3.82-4.97) M/mcL Hgb (11.5-15.4) g/dL Hct (35.3-44.9) % MCV (83.0-100.0) fL MCH (28.0-33.3) pg MCHC (31.6-35.5) g/dL RDW (11.5-14.5) % Plt Count (140-400) K/mcL MPV (9.4-12.4) fL Immature Gran % (0-4) % Seg Neutrophils % % Lymphocytes % % Monocytes % % Eosinophils % % Basophils % % Neutrophils # (1.6-8.9) K/mcL Lymphocytes # (0.6-4.6) K/mcL Monocytes # (0.0-1.3) K/mcL Eosinophils # (0.0-0.6) K/mcL Basophils # (0.0-0.2) K/mcL PT (9.4-12.1) Seconds INR APTT (26.0-36.0) Seconds Sodium 135 L (136-145) mEq/L Potassium 3.9 (3.5-5.1) mEq/L Chloride 105 (98-107) mEq/L Carbon Dioxide 18 L (23-29) mEq/L BUN 10 (6-20) mg/dL Creatinine 0.54 L (0.60-1.20) mg/dL Est GFR ( Amer) > 60 (> 60) Est GFR (Non-Af Amer) > 60 (> 60) BUN/Creatinine Ratio 19 (6-26) Glucose 102 (70-105) mg/dL Calculated Osmolality 279 L (280-300) Lactic Acid (0.5-2.2) mmol/L Calcium 9.7 (8.6-10.3) mg/dL Total Bilirubin 0.3 (0.3-1.0) mg/dL Direct Bilirubin 0.1 (0.0-0.2) mg/dL Indirect Bilirubin 0.2 (0.0-1.2) mg/dL AST 17 (13-39) Units/L ALT 14 (7-52) Units/L Alkaline Phosphatase 95 (34-104) Units/L Serum Total Protein 7.3 (6.4-8.9) g/dL Albumin 4.0 (3.5-5.7) g/dL Globulin 3.3 (2.4-3.5) g/dL Albumin/Globulin Ratio 1.2 (1.1-2.2) Amylase 31 (29-103) Units/L Lipase 34 (11-82) Units/L Urine Color (Yellow) Urine Clarity (Clear) Urine pH (5.0-8.0) pH Units Ur Specific [place] (1.010-1.025) Urine Protein (Neg-Trace) mg/dL Urine Glucose (UA) (Normal) mg/dL Urine Ketones (Negative) mg/dL Urine Blood (Negative) Urine Nitrite (Negative) Urine Bilirubin (Negative) Urine Urobilinogen (Normal) mg/dL Ur Leukocyte Esterase (Negative) Urine Microscopic RBC (0-3) per hpf Urine Microscopic WBC (0-3) per hpf Ur Squamous Epith Cells (None-Few) per lpf Calcium Oxalate Crystal Urine Bacteria (None-Few) per hpf Hyaline Casts (None-Few) per lpf Urine Mucus (Few) Ur Culture Indicated? (NO) Urine Test (Negative) Anisa species DNA (Not Detect) Ur C. trach DNA (PCR) NOT DETECTED (Not Detect) Gardnerella DNA Probe (Not Detect) U N.gonorrhoeae DNA PCR NOT DETECTED (Not Detect) Trichomonas DNA Probe (Not Detect) Specimen Rejected Clotted 01/27/18 01/27/18 01/27/18 Range/Units 02:49 03:48 03:48 WBC 10.9 (4.3-11.1) K/mcL RBC 3.52 L (3.82-4.97) M/mcL Hgb 10.6 L (11.5-15.4) g/dL Hct 32.2 L (35.3-44.9) % MCV 91.5 (83.0-100.0) fL MCH 30.1 (28.0-33.3) pg MCHC 32.9 (31.6-35.5) g/dL RDW 13.3 (11.5-14.5) % Plt Count 331 (140-400) K/mcL MPV 9.8 (9.4-12.4) fL Immature Gran % 0.2 (0-4) % Seg Neutrophils % 61.2 % Lymphocytes % 29.4 % Monocytes % 6.0 % Eosinophils % 2.7 % Basophils % 0.5 % Neutrophils # 6.7 (1.6-8.9) K/mcL Lymphocytes # 3.2 (0.6-4.6) K/mcL Monocytes # 0.7 (0.0-1.3) K/mcL Eosinophils # 0.3 (0.0-0.6) K/mcL Basophils # 0.1 (0.0-0.2) K/mcL PT (9.4-12.1) Seconds INR APTT (26.0-36.0) Seconds Sodium (136-145) mEq/L Potassium (3.5-5.1) mEq/L Chloride (98-107) mEq/L Carbon Dioxide (23-29) mEq/L BUN (6-20) mg/dL Creatinine (0.60-1.20) mg/dL Est GFR ( Amer) (> 60) Est GFR (Non-Af Amer) (> 60) BUN/Creatinine Ratio (6-26) Glucose (70-105) mg/dL Calculated Osmolality (280-300) Lactic Acid 1.2 (0.5-2.2) mmol/L Calcium (8.6-10.3) mg/dL Total Bilirubin (0.3-1.0) mg/dL Direct Bilirubin (0.0-0.2) mg/dL Indirect Bilirubin (0.0-1.2) mg/dL AST (13-39) Units/L ALT (7-52) Units/L Alkaline Phosphatase (34-104) Units/L Serum Total Protein (6.4-8.9) g/dL Albumin (3.5-5.7) g/dL Globulin (2.4-3.5) g/dL Albumin/Globulin Ratio (1.1-2.2) Amylase (29-103) Units/L Lipase (11-82) Units/L Urine Color (Yellow) Urine Clarity (Clear) Urine pH (5.0-8.0) pH Units Ur Specific [place] (1.010-1.025) Urine Protein (Neg-Trace) mg/dL Urine Glucose (UA) (Normal) mg/dL Urine Ketones (Negative) mg/dL Urine Blood (Negative) Urine Nitrite (Negative) Urine Bilirubin (Negative) Urine Urobilinogen (Normal) mg/dL Ur Leukocyte Esterase (Negative) Urine Microscopic RBC (0-3) per hpf Urine Microscopic WBC (0-3) per hpf Ur Squamous Epith Cells (None-Few) per lpf Calcium Oxalate Crystal Urine Bacteria (None-Few) per hpf Hyaline Casts (None-Few) per lpf Urine Mucus (Few) Ur Culture Indicated? (NO) Urine Test (Negative) Anisa species DNA Not Detected (Not Detect) Ur C. trach DNA (PCR) (Not Detect) Gardnerella DNA Probe Not Detected (Not Detect) U N.gonorrhoeae DNA PCR (Not Detect) Trichomonas DNA Probe Not Detected (Not Detect) Specimen Rejected
[2018-01-27] MEDS ORDERED: 0.9 % Sodium Chloride 1,000 ML IVC ONE (07:42)
[2018-01-27] MEDS ORDERED: Ketamine *HR* 15 MG in 0.9 % Sodium Chloride 100 ML IVPB ONE (08:12)
[2018-01-27] MEDS ORDERED: Naloxone 0.4 MG/ML INJ IVP PRN ×2 (09:19→09:21)
[2018-01-27] MEDS ORDERED: Ondansetron 4 MG/2 ML VIAL IVP PRN (09:21)
[2018-01-27] MEDS ORDERED: OXYCODONE Oral CONC 10 MG/0.5 ML ORAL.SYG SL PRN ×2 (09:21)
--- NOTE | 2018-01-27 09:27 | Internal Med History&Physical ---
Date of Encounter: 01/27/18 Time of Encounter: 09:00 Internal Medicine - H&P: HPI Chief complaint: Abdominal pain Admitted From: Home Plans for Post Hospital Care: Home History of present illness: Ms. Fregoso is a 32 year old female present to ER for lower abdominal pain for 2 -3 days. Past medical history is significant for chronic disease. Patient has history of Crohn disease, off medication now. Patient started to have abdominal pain since 2-3 days ago. Pain is constant, sharp, 8-9 out of 10 , worsening after eating. Patient denies fever, nausea, vomiting, or diarrhea. Her last bowel movement was yesterday. Patient has no problem with passing gas. In the emergency room abdominal CT has been done, which shows ileocecitis. Surgical consult was called by emergency room, recommend antibiotic treatment. Patient has severe pain needed IV pain medications. Patient admitted for further management. Past Med Surg Social Fam HX - Past Medical History Medical history: no medical history, other Additional medical history: chrons Psychiatric history: no psych history - Past Surgical History Surgical History: no surgical history Additional surgical history: LEEP, [place] - Social History Smoking Status: Current every day smoker Smokeless Tobacco Status: No Alcohol use: none Drug use: none - Family History Father Adopted: No Family Member Ethnicity: Non- Living Status: Still Living Hx Family Cardiac Disorders: No Hx Family Respiratory Disorders: No Hx Family Cancer: No Hx Family GI Disorders: No Hx Family Endocrine Disorder: No Hx Family Neuromuscular Disorders: No Hx Family Neurologic Disorders: No Hx Family HEENT Disorders: No Hx Family Autoimmune Disorders: No Internal Medicine - H&P: Meds No Known Home Drugs 01/27/18 [History] 3 Allergy/AdvReac Type Severity Reaction Status Date / Time No Known Allergies Allergy Verified 01/26/18 23:50 All Systems PM: A 10-system review of systems was performed and is negative for pertinent findings except as documented above in the HPI. - Constitutional Vitals: Temp Pulse Resp BP Pulse Ox 98.5 F 65 18 100/67 100 01/26/18 23:50 01/27/18 09:16 01/27/18 07:04 01/27/18 09:16 01/27/18 09:16 General appearance: Present: A&O X 3, no acute distress, answers questions appropriately - Head Head exam: Present: atraumatic, normocephalic - Eye Eye exam: Present: PERRL, conjuntiva pink, sclera anicteric Pupils: Present: PERRL - Neck Neck exam general surgery: Present: supple, trachea midline. Absent: lymphadenopathy - Respiratory Respiratory exam: Present: CTAB. Absent: accessory muscle use, rales, rhonchi, wheezes - Cardiovascular Cardiovascular exam: Present: RRR, +S1, +S2. Absent: diastolic murmur, gallop, rubs, systolic murmur - GI/Abdominal GI/Abdominal exam: Present: normal bowel sounds, soft, tenderness (Mild to moderate bilateral lower abdominal tenderness, without rebound or guarding.), no peritoneal signs. Absent: distended - Extremities Exam Extremities exam: Present: warm, radial pulses palpable and symmetrical. Absent : calf tenderness, cyanotic, pedal edema - Neurological Exam Neurological exam: Present: CN II-XII intact, oriented X3, no focal deficits. Absent: pronater drift, facial droop, speech deficit - Skin Skin exam: Present: dry, intact Internal Med - H&P Results - Labs CBC & Chem 7: 01/27/18 03:48 01/27/18 01:30 - Assessment and plan (1) Ovarian cyst Current Visit: Yes Status: Acute Assessment and plan: US pelvis shows ovarian cyst with possible rupture/hemorrhage. Will consult OB/ HEARING SCREENER for further management. Symptomatic treatment for pain at this point. Qualifiers: Laterality: left Qualified Code(s): N83.202 - Unspecified ovarian cyst, left side (2) Ileocolitis Current Visit: Yes Status: Acute Assessment and plan: We will continue Cipro and Flagyl. Keep patient nothing by mouth at this point , IV fluid. Surgical consult. (3) DVT prophylaxis Current Visit: Yes Status: Acute Assessment and plan: Patient is young and ambulating well. No anticoagulation placed at this point. (4) Abdominal pain Current Visit: Yes Status: Acute Assessment and plan: Probably multifactorial. Including chronic disease, ileocetitis and phlegmon, ruptured ovarian cyst. We will keep patient nothing by mouth, IV fluid, IV Cipro and Flagyl. Pain medication for pain. Consult surgery, GI, and supply assistant. Patient has negative liver function tests, lipase, and amylase. Qualifiers: Abdominal location: lower abdomen, unspecified Qualified Code(s): R10.30 - Lower abdominal pain, unspecified (5) Phlegmon Current Visit: Yes Status: Acute Assessment and plan: Management as above (6) Crohn disease Current Visit: Yes Status: Acute Assessment and plan: Consult GI for further management. At this point nothing by mouth, IV fluid, and pain medications. Qualifiers: Gastrointestinal tract location: unspecified location Digestive disease complication type: without complication Qualified Code(s): K50.90 - Crohn's disease, unspecified, without complications - Time Spent With Patient Total time spent is greater than 50% in coordination of care (as documented) at patient's floor/unit and/or counseling patient: 40 minutes Greater than 35 minutes
[2018-01-27] MEDS: D5% in 0.45% NACL 1,000 ML IVC SCH ×2 (10:16→21:33)
--- NOTE | 2018-01-27 11:38 | OB/GYN Consult Note ---
Date of Encounter: 01/27/18 Time of Encounter: 11:37 Assessment and Plan (1) Abdominal pain Current Visit: Yes Status: Acute 1. Dr. Alejandro-hospitalist managing care in consultation with GI, as well as surgery and CUSTOM DRESSMAKER. 2. Ultrasound of the abdomen showed small amount of free fluid which is consistent with patient history of colitis. 3. CT imaging showed ileocecitis with possible phlegmon without evidence of drainable abscess. 4. Multiple follicles noted in the left ovary with potential hemorrhage ruptured cyst- patient is nontender to palpation lower left quadrant, no signs of acute abdomen, patient is afebrile, vitals are stable. Qualifiers: Abdominal location: lower abdomen, unspecified Qualified Code(s): R10.30 - Lower abdominal pain, unspecified (2) Crohn disease Current Visit: Yes Status: Acute Qualifiers: Gastrointestinal tract location: unspecified location Digestive disease complication type: without complication Qualified Code(s): K50.90 - Crohn's disease, unspecified, without complications (3) Ovarian cyst Current Visit: Yes Status: Acute Pt to follow-up with Dr. Haque (her primary OBGYN). No acute OBGYN concerns at this time. Precautions given. At this time OBGYN will sign off. POC discussed with Dr. Sparks. Qualifiers: Laterality: left Qualified Code(s): N83.202 - Unspecified ovarian cyst, left side History of Present Illness Consult date: 01/27/18 Requesting physician: Heather Alejandro Reason for consult: pelvic pain, ovarian cyst Chief complaint: Abdominal pain History of present illness: Patient is a 32-year-old () female with a past obstetrical history of 3 prior miscarriages presenting to [place] emergency department for complaints of 2 day history of progressively worsening lower abdominal pain. Patient states that the pain is worsened by eating and denies any relieving factors, patient states that the pain is stabbing in nature 9 out of 10 on the pain scale and located in the lower abdomen below the umbilicus without radiation. -Patient admitted to hospital medicine ( Dr. Alejandro attending) for GI workup and consultation with CUSTOM DRESSMAKER. -Patient states a past medical history of Crohn's disease for which she takes no current medications. Patient states that this event is similar to prior Crohn's flares but is the worst that she has experienced. Past Med Surg Social Fam HX - Past Medical History Medical history: no medical history, other (Past medical history of Crohn's disease for unknown duration. ) Additional medical history: Crohns Psychiatric history: no psych history - Past Surgical History Surgical History: no surgical history Additional surgical history: LEEP, DNC - Social History Smoking Status: Current every day smoker Packs per day: <1 pack Smokeless Tobacco Status: No Alcohol use: none Drug use: none - Family History Father Adopted: No Family Member Ethnicity: Non- Living Status: Still Living Hx Family Cardiac Disorders: No Hx Family Respiratory Disorders: No Hx Family Cancer: No Hx Family GI Disorders: No Hx Family Endocrine Disorder: No Hx Family Neuromuscular Disorders: No Hx Family Neurologic Disorders: No Hx Family HEENT Disorders: No Hx Family Autoimmune Disorders: No Medications and Allergies No Known Home Drugs 01/27/18 [History] 3 Allergy/AdvReac Type Severity Reaction Status Date / Time No Known Allergies Allergy Verified 01/26/18 23:50 Review of Systems All Systems: reviewed and no additional remarkable complaints except as stated Constitutional: no fever(s), no headache(s) Cardiovascular: no chest pain, no dyspnea, no lightheadedness Respiratory: no dyspnea Gastrointestinal: abdominal pain, no constipation, no diarrhea, no hematemesis, no hematochezia, no melena, no nausea, no vomiting Genitourinary Female: no dysuria, no flank pain Musculoskeletal: no back pain Neurological: no abnormal gait, no disequilibrium, no dizziness, no headache(s) , no loss of vision Exam - Vital Signs Vital signs: Initial Vital Signs Temp Pulse Resp BP Pulse Ox 98.5 F 106 16 113/71 98 01/26/18 23:50 01/26/18 23:50 01/26/18 23:50 01/26/18 23:50 01/26/18 23:50 - Constitutional Constitutional: well developed, well nourished, no acute distress, average body habitus, other (Patient is alert and oriented, pleasant and engaged to conversation. Speech is fluid and she answers questions appropriately. Mood and affect appear normal.) - HEENT HEENT: Normocephaly, Mucus Membranes Moist - Lungs Respiratory exam: CTAB - Cardiovascular Cardiovascular exam: RRR, +S1, +S2 - Abdomen Abdomen: Present: bowel sounds normal. Absent: gravid, non tender (Tenderness noted to palpation in the midline abdomen below the umbilicus. There is no guarding present or rebound noted.), bruit present, guarding noted, hepatomegaly , splenomegaly, mass Results Result Diagrams: 01/27/18 03:48 01/27/18 01:30 Abnormal lab results RBC 3.52 M/mcL (3.82-4.97) L 01/27/18 03:48 Hgb 10.6 g/dL (11.5-15.4) L 01/27/18 03:48 Hct 32.2 % (35.3-44.9) L 01/27/18 03:48 Sodium 135 mEq/L (136-145) L 01/27/18 01:30 Carbon Dioxide 18 mEq/L (23-29) L 01/27/18 01:30 Creatinine 0.54 mg/dL (0.60-1.20) L 01/27/18 01:30 Calculated Osmolality 279 (280-300) L 01/27/18 01:30 Ur Specific [place] 1.026 (1.010-1.025) H 01/27/18 01:30 Urine Bilirubin Small (Negative) H 01/27/18 01:30 Urine Microscopic WBC 5-15 per hpf (0-3) H 01/27/18 01:30 Ur Squamous Epith Cells Many per lpf (None-Few) H 01/27/18 01:30 All other labs normal. Consult Discharge Plan - Plan Referrals: Erick Johns MD [Primary Care Provider] -
[2018-01-27] MEDS: *HR* FentaNYL (PF) 100 MCG/2 ML VIAL IVP PRN ×2 (12:25→17:06)
[2018-01-27] MEDS: Ketorolac 30 MG/ML VIAL IVP PRN ×2 (14:28→23:50)
[2018-01-27] MEDS: MetroNIDAZOLE 500 MG/100 ML 500 MG/100 ML BAG IVPB SCH ×2 (16:53→23:39)
[2018-01-27] MEDS ORDERED: Acetaminophen IV 500 MG/50 ML INFUS..BTL IVPB ONE (22:06)
[2018-01-28 04:37] LABS: Basophils % 0.5 %; Eosinophils # 0.3 K/mcL (0.0-0.6); Eosinophils % 2.8 %; Hemoglobin 9.6 g/dL (11.5-15.4); Immature Granulocytes % 0.3 % (0-4); Lymphocytes # 2.4 K/mcL (0.6-4.6); Lymphocytes % 27.1 %; Mean Corpuscular HGB Conc 33.1 g/dL (31.6-35.5); Mean Corpuscular Hemoglobin 30.5 pg (28.0-33.3); Mean Corpuscular Volume 92.1 fL (83.0-100.0); Mean Platelet Volume 10.3 fL (9.4-12.4); Monocytes # 0.5 K/mcL (0.0-1.3); Monocytes % 5.6 %; Neutrophils # 5.6 K/mcL (1.6-8.9); Platelet Count 283 K/mcL (140-400); Red Blood Count 3.15 M/mcL (3.82-4.97); Red Cell Distribution Width 13.3 % (11.5-14.5); Segmented Neutrophils % 63.7 %
[2018-01-28 04:59] LABS: BUN/Creatinine Ratio 14 (6-26); Blood Urea Nitrogen 8 mg/dL (6-20); Calcium 8.8 mg/dL (8.6-10.3); Carbon Dioxide 25 mEq/L (23-29); Chloride 105 mEq/L (98-107); Glucose 100 mg/dL (70-105); Osmolality,Calculated 276 (280-300); Potassium 3.8 mEq/L (3.5-5.1); Sodium 134 mEq/L (136-145); eGFR For Non-African Americans > 60 (> 60)
--- NOTE | 2018-01-28 06:58 | General Surgery Consult Note ---
Date of Encounter: 01/27/18 Time of Encounter: 14:30 Assessment and Plan (1) Ileocolitis Current Visit: Yes Status: Acute 32F with Crohn's flare; non peritoneal diet as tolerated IVF abx appreciate GI recs cares per primary team; no acute surgery at present History of Present Illness Consult date: 01/28/18 Reason for consult: abdominal pain History of present illness: 32F with h/o Crohn's disease, currently no on medications, who periodically gets Crohn's flares. She presents with worsening abdominal pain localized to the RLQ. Due to the severity of the pain, she presented to the ED. No reports of fevers, chills. A CT scan was obtained which demonstrated terminal ileitis, consistent with a Crohn's flare. Past Med Surg Social Fam HX - Past Medical History Medical history: no medical history, other (Past medical history of Crohn's disease for unknown duration. ) Additional medical history: Crohns Psychiatric history: no psych history - Past Surgical History Surgical History: no surgical history Additional surgical history: LEEP, DNC - Social History Smoking Status: Current every day smoker Packs per day: <1 pack Smokeless Tobacco Status: No Alcohol use: none Drug use: none - Family History Father Adopted: No Family Member Ethnicity: Non- Living Status: Still Living Hx Family Cardiac Disorders: No Hx Family Respiratory Disorders: No Hx Family Cancer: No Hx Family GI Disorders: No Hx Family Endocrine Disorder: No Hx Family Neuromuscular Disorders: No Hx Family Neurologic Disorders: No Hx Family HEENT Disorders: No Hx Family Autoimmune Disorders: No Medications and Allergies No Known Home Drugs 01/27/18 [History] 3 Allergy/AdvReac Type Severity Reaction Status Date / Time No Known Allergies Allergy Verified 01/26/18 23:50 Review of Systems All systems PM: The remainder of the systems were reviewed and are negative General Surgery Exam Initial Vital Signs Temp Pulse Resp BP Pulse Ox 98.5 F 106 16 113/71 98 01/26/18 23:50 01/26/18 23:50 01/26/18 23:50 01/26/18 23:50 01/26/18 23:50 - General physical appearance no distress - Eyes normal ocular movement - ENT normocephalic - Neck no lymphadectomy - Respiratory normal expansion, normal respiratory effort - Cardiovascular Cardiovascular exam: Present: RRR - Abdomen Abdomen general surgery: Present: soft, tender Abdominal Tenderness: Present: RLQ (non peritoneal) - Integumentary Integumentary general surgery: Present: warm and dry - Neurologic Present: CN 2-12 grossly intact - Musculoskeletal Present: normal posture - Psychiatric Psychiatric general surgery: Present: A&Ox3 Exam Initial Vital Signs Temp Pulse Resp BP Pulse Ox 98.5 F 106 16 113/71 98 01/26/18 23:50 01/26/18 23:50 01/26/18 23:50 01/26/18 23:50 01/26/18 23:50 Results - Labs 01/28/18 04:02 01/28/18 04:02 Abnormal lab results RBC 3.15 M/mcL (3.82-4.97) L 01/28/18 04:02 Hgb 9.6 g/dL (11.5-15.4) L 01/28/18 04:02 Hct 29.0 % (35.3-44.9) L 01/28/18 04:02 Sodium 134 mEq/L (136-145) L 01/28/18 04:02 Creatinine 0.58 mg/dL (0.60-1.20) L 01/28/18 04:02 POC Glucose 113 mg/dL (70-99) H 01/27/18 12:08 Calculated Osmolality 276 (280-300) L 01/28/18 04:02 Ur Specific [place] 1.026 (1.010-1.025) H 01/27/18 01:30 Urine Bilirubin Small (Negative) H 01/27/18 01:30 Urine Microscopic WBC 5-15 per hpf (0-3) H 01/27/18 01:30 Ur Squamous Epith Cells Many per lpf (None-Few) H 01/27/18 01:30 Diabetes panel 01/28/18 Range/Units 04:02 Sodium 134 L (136-145) mEq/L Potassium 3.8 (3.5-5.1) mEq/L Chloride 105 (98-107) mEq/L Carbon Dioxide 25 (23-29) mEq/L BUN 8 (6-20) mg/dL Creatinine 0.58 L (0.60-1.20) mg/dL Glucose 100 (70-105) mg/dL Calcium 8.8 (8.6-10.3) mg/dL Calcium panel 01/28/18 Range/Units 04:02 Calcium 8.8 (8.6-10.3) mg/dL Pituitary panel 01/28/18 Range/Units 04:02 Sodium 134 L (136-145) mEq/L Potassium 3.8 (3.5-5.1) mEq/L Chloride 105 (98-107) mEq/L Carbon Dioxide 25 (23-29) mEq/L BUN 8 (6-20) mg/dL Creatinine 0.58 L (0.60-1.20) mg/dL Glucose 100 (70-105) mg/dL Calcium 8.8 (8.6-10.3) mg/dL Adrenal panel 01/28/18 Range/Units 04:02 Sodium 134 L (136-145) mEq/L Potassium 3.8 (3.5-5.1) mEq/L Chloride 105 (98-107) mEq/L Carbon Dioxide 25 (23-29) mEq/L BUN 8 (6-20) mg/dL Creatinine 0.58 L (0.60-1.20) mg/dL Glucose 100 (70-105) mg/dL Calcium 8.8 (8.6-10.3) mg/dL All other labs normal. - Imaging CT scan - abdomen: report reviewed, image reviewed CT scan - pelvis: report reviewed, image reviewed Consult Discharge Plan - Plan Referrals: Erick Johns MD [Primary Care Provider] -
[2018-01-28] MEDS: Ringers Solution, Lactated 1,000 ML IVC SCH ×2 (07:22→17:45)
[2018-01-28] MEDS: MetroNIDAZOLE 500 MG/100 ML 500 MG/100 ML BAG IVPB SCH ×3 (09:04→23:27)
--- NOTE | 2018-01-28 10:11 | Internal Med Progress Note ---
Hospitalist Progress Note - Encounter Date of Encounter: 01/28/18 Time of Encounter: 10:11 - Subjective Interval History: 32 F with hx of crohn's disease who has not had a flare in several years, presented with abdominal pain likely due to Crohn's flare Incidental finding of hemorrhagic ovarina cysts, no intervention per OBGYN She is seen and examined at the bedside, she denies new complains She reports having had a BM this a.m but did not check the color of it She also states she is feeling much better Gen Surg and OBGYN eval noted, GI eval is pending, she is not septic - Exam Vitals: Temp Pulse Resp BP Pulse Ox 97.7 F 72 17 96/62 92 01/28/18 06:45 01/28/18 06:45 01/28/18 06:45 01/28/18 06:45 01/28/18 06:45 Exam: General: Patient is alert, no acute distress, oriented x 3 Head: atraumatic, normocephalic, Eye: normal appearance, PERRL, no scleral icterus, no conjunctival injection Neck: normal inspection, trachea midline, full ROM, no carotid bruits Chest: normal inspection, symmetric chest rise Respiratory: Good respiratory effort. Normal breath sounds. No wheezing or crackles. Cardiovascular: Regular rate and rhythm. s1 and s2 No clicks, rubs, gallops, or murmurs. No pedal edema Abdomen: Abdomen is soft, non-tender Musculoskeletal: Spontaneously moving all extremities Skin: warm, dry, intact. Neuro: Alert oriented x 3 normal cranial nerves, no focal deficits Psych: Patient's affect is normal - Assessment and Plan (1) Abdominal pain Current Visit: Yes Status: Acute Assessment and Plan: Probably multifactorial. Including chronic disease, ileocetitis and phlegmon, hemorrhagic ovarian cyst. Start patient on full liquid diet Continue Cipro and Flagyl No intervention per OBGYN and surgery GI eval is pending, per H and P, they were called on the phone Monitor closely (2) Phlegmon Current Visit: Yes Status: Acute Assessment and Plan: Management as above (3) Ovarian cyst Current Visit: Yes Status: Acute Assessment and Plan: US pelvis shows ovarian cyst with possible rupture/hemorrhage. TENTERING MACHINE OFF BEARER eval noted, for out-patient follow up (4) Ileocolitis Current Visit: Yes Status: Acute Assessment and Plan: Management as in abdominal pain (5) DVT prophylaxis Current Visit: Yes Status: Acute Assessment and Plan: Patient is young and ambulating well. No anticoagulation placed at this point. (6) Crohn disease Current Visit: Yes Status: Acute Assessment and Plan: Consult GI for further management. With flare and ileocolitis with flare management as in abdominal pain - Time Spent with Patient Total time spent is greater than 50% in coordination of care (as documented) at patient's floor/unit and/or counseling patient: Plan of Care Discussed with: patient Internal Medicine: Result - Labs CBC & Chem 7: 01/28/18 04:02 01/28/18 04:02 Labs: Short CBC 01/28/18 Range/Units 04:02 WBC 8.9 (4.3-11.1) K/mcL Hgb 9.6 L (11.5-15.4) g/dL Hct 29.0 L (35.3-44.9) % Plt Count 283 (140-400) K/mcL Neutrophils # 5.6 (1.6-8.9) K/mcL BMP 01/28/18 04:02 Sodium 134 L Potassium 3.8 Chloride 105 Carbon Dioxide 25 BUN 8 Creatinine 0.58 L Glucose 100 Calcium 8.8 - ABG Interpretation ABG results: PT/INR, D-dimer PT 11.5 Seconds (9.4-12.1) 01/27/18 01:30 Consult Discharge Plan - Plan Referrals: Erick Johns MD [Primary Care Provider] - (1) Abdominal pain Qualifiers: Abdominal location: lower abdomen, unspecified Qualified Code(s): R10.30 - Lower abdominal pain, unspecified (3) Ovarian cyst Qualifiers: Laterality: left Qualified Code(s): N83.202 - Unspecified ovarian cyst, left side (6) Crohn disease Qualifiers: Gastrointestinal tract location: unspecified location Digestive disease complication type: without complication Qualified Code(s): K50.90 - Crohn's disease, unspecified, without complications
--- NOTE | 2018-01-28 13:24 | Gastroenterology Consult Note ---
<José Manuel Sanford - Last Filed: 01/28/18 13:22> Date of Encounter: 01/28/18 Time of Encounter: 10:50 - Assessment and plan (1) Crohn disease Current Visit: Yes Status: Acute Assessment and plan: Last colonoscopy September 2014. Patient has been off medication for "years". Complete biological workup. Plan for colonoscopy tomorrow. Clear liquid diet today, no red or purple. NPO at midnight. If unable tolerate NuLytely please use MiraLAX prep. If not clear by 6 AM, give 2 tap water enemas. Qualifiers: Gastrointestinal tract location: unspecified location Digestive disease complication type: without complication Qualified Code(s): K50.90 - Crohn's disease, unspecified, without complications - Time Spent With Patient Total time spent is greater than 50% in coordination of care (as documented) at patient's floor/unit and/or counseling patient: GI History of Present Illness - Data of Consult Patient: known to practice within the last 3 years Consult date: 01/28/18 Requesting Physician: Heather Alejandro MD - Consult Narrative Reason for consult: Crohn's History of present illness: Ms. Fregoso is a 32 year old female with PMHx of Crohn's disease (off medication ) who presented to the ED with abdominal pain for 2-3 days, worsened with eating. She denies fever, chills, chest pain, nausea, vomiting, or diarrhea. She is passing gas without difficulty. US pelvis shows ovarian cyst with possible rupture/hemorrhage. LABOR GANG SUPERVISOR consulted. CT A/P shows ileocecitis-similar in distribution to the prior exam and compatible with patient's underlying history of Crohn's disease and adjacent reactive lymphadenopathy, possibly with a small area phlegmon, however there is no drainable abscess. We were consulted to evaluate her Crohn's disease. Last office visit 02/11/2016 and she refused Humira at that time. She was educated that she may require surgery if we do not treat her disease aggresively. Procedures: Colonoscopy 09/25/2014 Dr. Garibay: Inflammation secondary to Crohn's disease with ileitis at IC valve. Colonoscopy 06/24/2012 Dr. Garibay: Cecum/IV valve deformed, with changes supsecious for Crohn's disease (nodularity, friability etc), poor prep. EGD 06/24/2012 Dr. Garibay: Normal Past Med Surg Social Fam HX - Past Medical History Medical history: no medical history, other (Past medical history of Crohn's disease for unknown duration. ) Additional medical history: Crohns Psychiatric history: no psych history - Past Surgical History Surgical History: no surgical history Additional surgical history: LEEP, DNC - Social History Smoking Status: Current every day smoker Packs per day: <1 pack Smokeless Tobacco Status: No Alcohol use: none Drug use: none - Family History Father Adopted: No Family Member Ethnicity: Non- Living Status: Still Living Hx Family Cardiac Disorders: No Hx Family Respiratory Disorders: No Hx Family Cancer: No Hx Family GI Disorders: No Hx Family Endocrine Disorder: No Hx Family Neuromuscular Disorders: No Hx Family Neurologic Disorders: No Hx Family HEENT Disorders: No Hx Family Autoimmune Disorders: No - Gastrointestinal Gastrointestinal: Present: as per HPI - Constitutional Constitutional: as per HPI - EENT Eyes: as per HPI Ears: Present: as per HPI Nose, mouth and throat: Present: as per HPI - Cardiovascular Cardiovascular ROS: Present: as per HPI - Respiratory Respiratory IM: Present: as per HPI - Genitourinary Genitourinary: Absent: change in color, Urinary frequency - Neurological ROS Neurological GI: Present: as per HPI - Hematologic/Lymphatic Hematologic/Lymphatic pediatric: Present: as per HPI - Musculoskeletal Musculoskeletal ROS GI: Present: as per HPI - Integumentary Integumentary GI: Present: as per HPI - Psychiatric ROS Psychiatric GI: Present: as per HPI - Endocrine Endocrine IM: Present: as per HPI - Constitutional Vitals: Temp Pulse Resp BP Pulse Ox 98 F 67 17 99/64 99 01/28/18 10:48 01/28/18 10:48 01/28/18 10:48 01/28/18 10:48 01/28/18 10:48 General appearance: Present: cooperative, A&O X 3, no acute distress, answers questions appropriately - Head Head exam: Present: atraumatic, normocephalic - Eye Eye exam: Present: normal appearance, sclera anicteric - ENT ENT exam: Present: mucous membranes moist - Neck Neck exam general surgery: Present: normal inspection, trachea midline - Respiratory Respiratory exam: Present: CTAB. Absent: rales, rhonchi - Cardiovascular Cardiovascular exam: Present: RRR, +S1, +S2 - GI/Abdominal GI/Abdominal exam: Present: normal bowel sounds, soft, tenderness (lower abdominal tenderness with palpation), no peritoneal signs. Absent: distended, firm, guarding - Rectal Rectal exam: Present: deferred - Extremities Exam Extremities exam: Present: warm - Neurological Exam Neurological exam: Present: no focal deficits - Psychiatric Psychiatric exam: Present: normal affect, normal mood - Skin Skin exam: Present: dry, intact, normal color, warm Results - Labs CBC & Chem 7: 01/28/18 04:02 01/28/18 04:02 Labs: Last Result Calcium 8.8 mg/dL (8.6-10.3) 01/28/18 04:02 Entire Visit Hgb 9.6 g/dL (11.5-15.4) L 01/28/18 04:02 Hct 29.0 % (35.3-44.9) L 01/28/18 04:02 PT 11.5 Seconds (9.4-12.1) 01/27/18 01:30 Total Bilirubin 0.3 mg/dL (0.3-1.0) 01/27/18 01:30 AST 17 Units/L (13-39) 01/27/18 01:30 ALT 14 Units/L (7-52) 01/27/18 01:30 Amylase 31 Units/L (29-103) 01/27/18 01:30 Lipase 34 Units/L (11-82) 01/27/18 01:30 - ABG ABG results: PT/INR, D-dimer PT 11.5 Seconds (9.4-12.1) 01/27/18 01:30 Consult Discharge Plan - Plan Referrals: Erick Johns MD [Primary Care Provider] - <Rashid Garibay - Last Filed: 01/28/18 18:50> Date of Encounter: 01/28/18 Time of Encounter: 17:30 - Time Spent With Patient Total time spent is greater than 50% in coordination of care (as documented) at patient's floor/unit and/or counseling patient: GI History of Present Illness - Data of Consult Requesting Physician: Heather Alejandro MD - Consult Narrative History of present illness: Ms. Fregoso is a 32 year old female - Constitutional Vitals: Temp Pulse Resp BP Pulse Ox 98 F 67 17 99/66 99 08/16/18 10:48 01/28/18 10:48 01/28/18 10:48 01/28/18 13:50 01/28/18 10:48 Results - Labs CBC & Chem 7: 01/28/18 04:02 01/28/18 04:02 Labs: Last Result Calcium 8.8 mg/dL (8.6-10.3) 01/28/18 04:02 Entire Visit Hgb 9.6 g/dL (11.5-15.4) L 01/28/18 04:02 Hct 29.0 % (35.3-44.9) L 01/28/18 04:02 PT 11.5 Seconds (9.4-12.1) 01/27/18 01:30 Total Bilirubin 0.3 mg/dL (0.3-1.0) 01/27/18 01:30 AST 17 Units/L (13-39) 01/27/18 01:30 ALT 14 Units/L (7-52) 01/27/18 01:30 Amylase 31 Units/L (29-103) 01/27/18 01:30 Lipase 34 Units/L (11-82) 01/27/18 01:30 - ABG ABG results: PT/INR, D-dimer PT 11.5 Seconds (9.4-12.1) 01/27/18 01:30 - Attending Attestation I have personally performed a face to face evaluation on this patient. I have reviewed and agree with the care plan. History and Exam by me shows: Patient seen and the bedside. Patient with long history of Crohn disease was admitted because of flare. Did not taking any medication for Crohn for long time. CTs showing ileitis and cecum inflammation. On examination does has tenderness on the right side. Assessment: Patient with the Crohn disease involving the terminal ileum and right colon now with flare. Recommendation: Patient will be started on IV Solu- Medrol continue IV antibiotics for now colonoscopy in the morning. We will do the workup before we can start the patient on biologic.
[2018-01-28] MEDS: *HR* FentaNYL (PF) 100 MCG/2 ML VIAL IVP PRN ×3 (13:53→22:14)
[2018-01-28 15:33] LABS: Hepatitis B Surface Antigen Nonreactive (Nonreactive)
[2018-01-28] MEDS ORDERED: SODIUM CHLORIDE/NAHCO3/KCL/PEG 4,000 ML SOLN.RECON PO ONE (17:00)
[2018-01-28] MEDS: MethylPREDNISolone 40 MG/ML VIAL IVP SCH (18:56)
[2018-01-28] MEDS: Ketorolac 30 MG/ML VIAL IVP PRN (19:52)
[2018-01-29 02:02] LABS: Hepatitis A Antibody IgM Nonreactive (Nonreactive); Hepatitis B Core IgM Nonreactive (Nonreactive); Hepatitis C Virus Antibody Nonreactive (Nonreactive)
[2018-01-29] MEDS: *HR* FentaNYL (PF) 100 MCG/2 ML VIAL IVP PRN (03:23)
[2018-01-29 05:07] LABS: Basophils % 0.1 %; Hematocrit 29.8 % (35.3-44.9); Hemoglobin 9.7 g/dL (11.5-15.4); Immature Granulocytes % 0.4 % (0-4); Lymphocytes # 0.7 K/mcL (0.6-4.6); Lymphocytes % 7.1 %; Mean Corpuscular HGB Conc 32.6 g/dL (31.6-35.5); Mean Corpuscular Hemoglobin 29.4 pg (28.0-33.3); Mean Corpuscular Volume 90.3 fL (83.0-100.0); Mean Platelet Volume 10.5 fL (9.4-12.4); Monocytes % 0.4 %; Neutrophils # 9.3 K/mcL (1.6-8.9); Platelet Count 315 K/mcL (140-400); Red Cell Distribution Width 12.9 % (11.5-14.5)
[2018-01-29 05:31] LABS: BUN/Creatinine Ratio 13 (6-26); Blood Urea Nitrogen 7 mg/dL (6-20); Calcium 9.4 mg/dL (8.6-10.3); Carbon Dioxide 24 mEq/L (23-29); Chloride 105 mEq/L (98-107); Glucose 152 mg/dL (70-105); Osmolality,Calculated 281 (280-300); Potassium 4.2 mEq/L (3.5-5.1); Sodium 135 mEq/L (136-145); eGFR For Non-African Americans > 60 (> 60)
[2018-01-29] MEDS ORDERED: Propofol 500 MG/50 ML INFUS..BTL ONE (07:37)
[2018-01-29] MEDS ORDERED: Ondansetron 4 MG/2 ML VIAL ONE (07:37)
[2018-01-29] MEDS ORDERED: Lidocaine -MPF 2% 2 ML VIAL ONE (07:37)
[2018-01-29] MEDS ORDERED: *HR* Propofol 200 MG/20 ML VIAL IVP ONE (07:48)
--- NOTE | 2018-01-29 08:06 | Anesthesia Evaluation PreOp ---
Date of Encounter: 01/29/18 Time of Encounter: 08:00 - Past History Planned Operation: EGD/Colonoscopy Cardiac History: Denies any Significant Hx Pulmonary History: Denies Any Significant HX TAX SERVICES MANAGER History: Denies Any Significant HX Other Medical History: Other (Crohn's) Anesthesia History: Past Anesthesia (no prior general anesthesia) Test: Negative (01/27/2018) Alcohol Use: none Drug use: none Medications and Allergies No Known Home Drugs 01/27/18 [History] 3 Allergy/AdvReac Type Severity Reaction Status Date / Time No Known Allergies Allergy Verified 01/26/18 23:50 - Meds/Allergy Pre-op Review Medications Reviewed: Yes Allergies Reviewed: Yes Beta Blockers on Current Med List: No Anesthesia Results - Labs 01/29/18 04:32 01/29/18 04:32 Anesthesia Exam Vital Signs/O2 Sat, Most Current Temp Pulse Resp BP Pulse Ox 98.4 F 75 16 93/58 99 01/29/18 07:21 01/29/18 07:21 01/29/18 07:21 01/29/18 07:21 01/29/18 07:21 Height: 5'/1.52m Weight: 147 lbs/67 kg NPO (# of Hours): 8 Pain Scale: 0 Pain Scale Used: Numeric (1 - 10) - HEENT Pupil (Motor): EOMI Mallampati: II Teeth: Normal Oral Opening: Greater than 3 - TAX SERVICES MANAGER LOC: Oriented TAX SERVICES MANAGER Motor: Normal RUE, Normal LUE, Normal RLE, Normal LLE, Normal Face TAX SERVICES MANAGER Sensory: Normal: RUE, LUE, RLE, LLE, Face - Cardiac Rhythm: Regular Murmur: None - Pulmonary Breath Sounds: bilateral Clear Respiratory Effort: Symmetrical Anesthesia Assess/Plan ASA Score: 2 Modified Henderson Scale for Level of Consciousness: Cooperative, oriented, and tranquil Anesthetic Plan: MAC Monitoring Plan: Standard Monitors
[2018-01-29] MEDS: MethylPREDNISolone 40 MG/ML VIAL IVP SCH (09:42)
[2018-01-29] MEDS: MetroNIDAZOLE 500 MG/100 ML 500 MG/100 ML BAG IVPB SCH (09:43)
[2018-01-29] MEDS ORDERED: *HR* OxyCODONE/APAP 5/325 TABLET PO PRN ×2 (10:04→16:00)
[2018-01-29 10:37] VITALS: BP 108/61
[2018-01-29] MEDS ORDERED: OXYCODONE Oral CONC 10 MG/0.5 ML ORAL.SYG SL PRN (10:50)
--- NOTE | 2018-01-29 13:57 | Discharge Summary ---
- NOTES TO OUTPATIENT PROVIDER Notes to Outpatient Provider: Patient was admitted for ileocolitis secondary to Crohn's flare. Colonoscopy was cancelled due to incomplete bowel prep. She is discharged home on antibiotics, and tapering prednisone. Follow-up with Dr. Arnold as outpatient for colonoscopy and further management. Also follow up with MAT LINKER for hemorhagic ovarian cyst Orders not resulted at time of discharge: Pending orders 01/28/18 13:30 Histoplasma galactomannan,Ur Routine 01/28/18 14:29 QuantiFERON-TB Gold In-Tube Routine TPMT Genotyping 4 Variants Routine Date of Encounter: 01/29/18 Time of Encounter: 12:00 - Discharge Diagnosis (1) Abdominal pain Priority: Primary Status: Resolved Qualifiers: Abdominal location: lower abdomen, unspecified Qualified Code(s): R10.30 - Lower abdominal pain, unspecified (2) Phlegmon Priority: Primary Status: Acute (3) Ovarian cyst Priority: Primary Status: Acute Qualifiers: Laterality: left Qualified Code(s): N83.202 - Unspecified ovarian cyst, left side (4) Ileocolitis Priority: Primary Status: Acute (5) DVT prophylaxis Priority: Primary Status: Acute (6) Crohn disease Priority: Primary Status: Acute Qualifiers: Gastrointestinal tract location: unspecified location Digestive disease complication type: without complication Qualified Code(s): K50.90 - Crohn's disease, unspecified, without complications Hospital course: Ms. Fregoso is a 32 year old female with medical history of Crohn's disease, who was known to Dr. Arnold, lost to follow-up, and noncompliant, presented to the emergency room with abdominal pain, with image findings of iridocyclitis and phlegmon as well as hemorrhagic ovarian cyst. She has been managed conservatively with pain control, steroids, IV fluid hydration, ciprofloxacin and Flagyl IV. Gastroenterology was consulted for further recommendations, general surgery and PROCESS EQUIPMENT OPERATOR with consulted for ultrasound report of hemorrhagic ovarian cyst. However, during no recommendations no interventions planned. She has chronic anemia, however, was otherwise unremarkable. Attempts for colonoscopy was done however, bowel prep was poor, and GI recommended colonoscopy as outpatient. Last colonoscopy was 2014. She was seen and examined at the bedside after colonoscopy, she denies new complaints, she has no abdominal pain, she has no abdominal swelling, physical examination was unremarkable. She was given a regular diet for lunch, she tolerated without any side effects. She is discharged with appropriate follow-up with gastroenterology and PROCESS EQUIPMENT OPERATOR, as well as oral antibiotics, and tapering prednisone. Follow-up with primary care physician as well. Plan of care was discussed with the patient verbalized understanding. Discharge discussed with: patient, nurse - Time Spent with Patient Total time spent providing and/or coordinating discharge services: Less than 30 minutes - Discharge Medications Home Medications: No Known Home Drugs 01/27/18 [History] Allergies/Adverse Reactions: 3 Allergy/AdvReac Type Severity Reaction Status Date / Time No Known Allergies Allergy Verified 01/26/18 23:50 Date of admission: 01/27/18 08:46 Primary care physician: Eirck Johns MD Consults: 01/27/18 09:18 Consult to MACHINE OPERATIONS SUPERVISOR [CONS] Stat Consulting Provider: PROCESS EQUIPMENT OPERATOR Reshma Reason for Consult: US pelvis suggest ruptured ovarian cyst Call Completed: Yes Discharging clinician: Sreedhar Chowdhury Anticipated date of discharge: 01/29/18 - Constitutional Vitals: Temp Pulse Resp BP Pulse Ox 97.5 F L 66 14 108/61 99 01/29/18 10:30 01/29/18 10:30 01/29/18 10:30 01/29/18 10:30 01/29/18 10:31 General appearance: Present: A&O X 3, no acute distress, answers questions appropriately - Head Head exam: Present: atraumatic, normocephalic - Eye Eye exam: Present: PERRL, conjuntiva pink, sclera anicteric Pupils: Present: PERRL - Neck Neck exam general surgery: Present: supple, trachea midline. Absent: lymphadenopathy - Respiratory Respiratory exam: Present: CTAB. Absent: accessory muscle use, rales, rhonchi, wheezes - Cardiovascular Cardiovascular exam: Present: RRR, +S1, +S2. Absent: diastolic murmur, gallop, rubs, systolic murmur - GI/Abdominal GI/Abdominal exam: Present: normal bowel sounds, soft, no peritoneal signs. Absent: distended, tenderness - Extremities Exam Extremities exam: Present: warm, radial pulses palpable and symmetrical. Absent : calf tenderness, cyanotic, pedal edema - Neurological Exam Neurological exam: Present: CN II-XII intact, oriented X3, no focal deficits. Absent: pronater drift, facial droop, speech deficit - Skin Skin exam: Present: dry, intact - Patient Status Disposition: Home, Self-Care Condition: Good Functional capacity at discharge: independent ambulation Overall status at discharge: patient is progressing back to baseline - Discharge Instructions Follow Up With: Erick Johns MD [Primary Care Provider] - Additional Instructions: Follow up with OBGYN Follow up with Dr. Garibay Complete your antibiotic regimen and prednisone regimen - Diet and Activity Activity: resume usual activities as tolerated Diet: regular diet
[2018-01-29] MEDS ORDERED: metroNIDAZOLE 500 MG TABLET PO SCH (15:00)
[2018-01-30] MEDS ORDERED: predniSONE 20 MG TABLET PO SCH (09:00)
[2018-02-01 19:51] LABS: QuantiFERON Mitogen minus NIL >10.00 IU/mL
[2018-02-02 07:15] LABS: QuantiFERON NIL 0.05 IU/mL; QuantiFERON-TB Gold In-Tube NEGATIVE (Negative)
[2018-02-03 10:53] LABS: Thiopurine Methy Genotyp NEG/NEG; Thiopurine Methyl Gen Specimen WHOLE BLOOD
[2018-02-04 08:25] LABS: TPMT Predicted Phenotype NORMAL
== END 2018-01-29 14:57 | disposition home or self-care (01) ==
LOC: 3ANU 23:36 → EMEROOARM 23:36 → 3ANU 01-27 09:44
PROVIDERS: ADMIT Internal Medicine; ATTEND Internal Medicine

== ENCOUNTER → 2018-07-19 18:35 | Observation (INO) ==
[2018-07-19 16:30] LABS: Bilirubin,Urine Small (Negative); Blood,Urine Negative (Negative); Clarity,Urine Cloudy (Clear); Color,Urine Dark Yellow (Yellow); Glucose,Urine (UA) Normal (Normal); Ketones,Urine Negative (Negative); Leukocyte Esterase,Urine Small (Negative); Nitrite,Urine Negative (Negative); PH,Urine 6.5 pH Units (5.0-8.0); Protein,Urine 100 mg/dL (Neg-Trace); Specific Gravity,Urine 1.023 (1.010-1.025); Urobilinogen,Urine Normal (Normal)
[2018-07-19 16:33] LABS: Hyaline Casts,Urine None Seen per lpf (None-Few); RBC,Urine 0-3 per hpf (0-3); Squamous Epithelial Cell,Urine Many per lpf (None-Few); WBC,Urine 15-30 per hpf (0-3)
[2018-07-19 16:53] LABS: Amphetamine Screen,Urine Negative ng/mL (Cutoff=1000); Bacteria,Urine Many per hpf (None-Few); Barbiturate Screen,Urine Negative ng/mL (Cutoff=200); Benzodiazepines Screen,Urine Negative ng/mL (Cutoff=200); Cannabinoid Screen,Urine Positive ng/mL (Cutoff = 50); Cocaine Screen,Urine Negative ng/mL (Cutoff= 300); Opiate Screen,Urine Negative ng/mL (Cutoff=300); Phencyclidine Screen,Urine Negative ng/mL (Cutoff=25)
--- NOTE | 2018-07-19 17:51 | OB/GYN Progress Note ---
Date of Encounter: 07/19/18 Time of Encounter: 17:44 - Assessment and Plan (1) 27 weeks gestation of Current Visit: Yes Status: Acute (2) Encounter for suspected PROM, with rupture of membranes not found Current Visit: Yes Status: Acute Cervix closed, normal speculum exam shows normal discharge of , nitrazine negative, ferning negative. Transvaginal ultrasound performed interviewed by Dr. Mcclain cervical length 4.5 cm. Discharged home with labor and when to return to triage precautions. Patient verbalizes understanding Subjective - Subjective Interval history: presents to triage with complaints of leaking of fluid and right-sided abdominal pain. Patient states last night she noticed she was leaking fluid, and had right-sided abdominal pain near the umbilicus she describes as sharp. Patient contacted Dr. Haque today, Dr. Haque instructed patient to come to triage for evaluation for rupture of membranes in cervical length. Patient of history of delivery 4 (3 pre-viability births, one at 32 weeks), patient had cerclage for last 2 pregnancies. Reports good movement, denies vaginal bleeding Antepartum ROS: loss of fluid, vaginal bleeding, movement normal, contractions Objective - Exam FHR: auscultation normal FHR comments: Baseline 140 Abdomen: Present: soft, gravid Cervical dilation: Closed Comments: Speculum exam shows normal thick white discharge of . Nitrazine negative, Fern negative - Labs Labs: Abnormal lab results Urine Clarity Cloudy (Clear) A 07/19/18 16:13 Urine Protein 100 mg/dL (Neg-Trace) H 07/19/18 16:13 Urine Bilirubin Small (Negative) H 07/19/18 16:13 Ur Leukocyte Esterase Small (Negative) H 07/19/18 16:13 Urine Microscopic WBC 15-30 per hpf (0-3) H 07/19/18 16:13 Ur Squamous Epith Cells Many per lpf (None-Few) H 07/19/18 16:13 Urine Bacteria Many per hpf (None-Few) H 07/19/18 16:13 Ur Culture Indicated? NO. (NO) A 07/19/18 16:13 U Marijuana (THC) Screen Positive ng/mL (Cutoff = 50) H 07/19/18 16:13
== END | disposition home or self-care (01) ==
LOC: 1NENULAB
PROVIDERS: ADMIT Advanced Practice Midwife; ATTEND Advanced Practice Midwife

== ENCOUNTER → 2018-09-02 14:35 | Observation (INO) ==
[2018-09-02 12:48] LABS: Bilirubin,Urine Negative (Negative); Blood,Urine Negative (Negative); Clarity,Urine Cloudy (Clear); Color,Urine Yellow (Yellow); Glucose,Urine (UA) Normal (Normal); Ketones,Urine Negative (Negative); Leukocyte Esterase,Urine Trace (Negative); Nitrite,Urine Negative (Negative); Protein,Urine Negative (Neg-Trace); Specific Gravity,Urine < 1.005 (1.010-1.025); Urobilinogen,Urine Normal (Normal)
[2018-09-02 12:50] LABS: Bacteria,Urine Few per hpf (None-Few); Hyaline Casts,Urine None Seen per lpf (None-Few); RBC,Urine 0-3 per hpf (0-3); WBC,Urine 0-3 per hpf (0-3)
[2018-09-02 12:56] LABS: Amphetamine Screen,Urine Negative ng/mL (Cutoff=1000); Barbiturate Screen,Urine Negative ng/mL (Cutoff=200); Benzodiazepines Screen,Urine Negative ng/mL (Cutoff=200); Cannabinoid Screen,Urine Negative ng/mL (Cutoff = 50); Cocaine Screen,Urine Negative ng/mL (Cutoff= 300); Opiate Screen,Urine Negative ng/mL (Cutoff=300); Phencyclidine Screen,Urine Negative ng/mL (Cutoff=25)
[2018-09-02 13:04] LABS: Squamous Epithelial Cell,Urine Few per lpf (None-Few)
--- NOTE | 2018-09-02 14:28 | OB/GYN History & Physical ---
Date of Encounter: 09/02/18 Time of Encounter: 14:25 Assessment and Plan (1) Non-reassuring electronic monitoring tracing Current visit: Yes Status: Acute 33yo at 34+1wks GA who presents to triage for CEFM, recommended by Dr. Mcgee for NST that was reassuring but not reactive. Patient was kept on L&D for 3+hours of CEFM. Denies n/v/d. Denies VB/LOF/contraction(S) Normal baseline, no deceleration(s), 15x15 accelerations Discussed movement extensively with the patient Plan for patient to have weekly NSTs OK to f/u with Dr. Haque next week. Dispo: RT office next week for NST and PNV. discussed si/sx of PTL and movement. MD LISA History of Present Illness Chief complaint: 33yo female who presents with NRFWB HPI: Ms. Fregoso is a 33 year old female 33yo female with hx of PTD/PTL, who is 34+1wks GA who presents for continuous monitoring. THe patient was seen in the office yesterday by Dr. Haque and found to have one deceleration and was yennifer. She did have BPP performed that was reassuring however the patient was told to return today (09/02) to the office to see me (Dr. Mcgee) for a repeat NST. movement with hourly kick counts were discussed. The patient had an NST performed with normal baseline NST (150bpm) with moderate variability. Only able to appreciate 10x10 acceleration(S) therefore we recommended the patient go to labor and delivery for CEFM. Denied feelings of contraction(S), vaginal bleeding, leaking of fluid. Reported adequate hourly movement. IN triage, the patient was kept on CEFM for 3+ hours. Past Med Surg Social Fam HX - Past Medical History Medical history: no medical history Additional medical history: Crohns Psychiatric history: depression - Past Surgical History Surgical History: other Additional surgical history: leep and d&c - Social History Smoking Status: Current every day smoker Packs per day: 8 cigarettes a day Smokeless Tobacco Status: No Alcohol use: none Drug use: none - Family History Father Adopted: No Family Member Ethnicity: Non- Living Status: Still Living Hx Family Cardiac Disorders: No Hx Family Respiratory Disorders: No Hx Family Cancer: No Hx Family GI Disorders: No Hx Family Endocrine Disorder: No Hx Family Neuromuscular Disorders: No Hx Family Neurologic Disorders: No Hx Family HEENT Disorders: No Hx Family Autoimmune Disorders: No Obstetrical History - Pregnancies : 6 Livin Medications and Allergies Progesterone 150 mg IM QWEEK 06/11/18 [History] Pedi Mv No.79/Ferrous Fumarate [Flintstones with Iron Tab Chew] 18 mg PO DAILY 09/02/18 [History] Sertraline [Zoloft] 50 mg PO DAILY 09/02/18 [History] Allergy/AdvReac Type Severity Reaction Status Date / Time No Known Allergies Allergy Verified 07/19/18 16:57 Exam - Vital Signs Vital signs: VSS, HDS, afebrile. Results Abnormal lab results Urine Clarity Cloudy (Clear) A 09/02/18 12:32 Ur Specific [place] < 1.005 (1.010-1.025) L 09/02/18 12:32 Ur Leukocyte Esterase Trace (Negative) H 09/02/18 12:32 Ur Culture Indicated? YES (NO) A 09/02/18 12:32 All other labs normal. - VTE Reasons for not Prescribing Prophylaxis: Treatment not Indicated - Low risk for VTE
== END | disposition home or self-care (01) ==
LOC: 1NENULAB
PROVIDERS: ADMIT Registered Nurse; ATTEND Registered Nurse

== ENCOUNTER → 2018-09-14 18:47 | Observation (INO) ==
[2018-09-14 17:18] LABS: Bilirubin,Urine Negative (Negative); Blood,Urine Negative (Negative); Clarity,Urine Clear (Clear); Color,Urine Dark Yellow (Yellow); Glucose,Urine (UA) Normal (Normal); Ketones,Urine Negative (Negative); Leukocyte Esterase,Urine Trace (Negative); Nitrite,Urine Negative (Negative); Protein,Urine 30 mg/dL (Neg-Trace); Specific Gravity,Urine 1.022 (1.010-1.025); Urobilinogen,Urine Normal (Normal)
[2018-09-14 17:21] LABS: Bacteria,Urine Few per hpf (None-Few); Hyaline Casts,Urine None Seen per lpf (None-Few); RBC,Urine 0-3 per hpf (0-3); Squamous Epithelial Cell,Urine Many per lpf (None-Few); WBC,Urine 0-3 per hpf (0-3)
[2018-09-14 17:26] LABS: Amphetamine Screen,Urine Negative ng/mL (Cutoff=1000); Barbiturate Screen,Urine Negative ng/mL (Cutoff=200); Benzodiazepines Screen,Urine Negative ng/mL (Cutoff=200); Cannabinoid Screen,Urine Negative ng/mL (Cutoff = 50); Cocaine Screen,Urine Negative ng/mL (Cutoff= 300); Opiate Screen,Urine Negative ng/mL (Cutoff=300); Phencyclidine Screen,Urine Negative ng/mL (Cutoff=25)
--- NOTE | 2018-09-14 18:44 | Discharge Summary ---
Date of Encounter: 09/14/18 Time of Encounter: 18:40 - Discharge Diagnosis (1) 35 weeks gestation of Priority: Primary Status: Acute Comments: Follow up with Dr. Haque as scheduled PTL precautions discussed Discharge home (2) Uterine cramping Priority: Secondary Status: Acute Comments: SVE /-1 no change after 2 hours - Discharge Medications Prescriptions: New HydrOXYzine Pamoate [Vistaril] 50 mg PO Q12H PRN #4 capsule PRN Reason: cramping Continue Progesterone 150 mg IM QWEEK Sertraline [Zoloft] 50 mg PO DAILY Pedi Mv No.79/Ferrous Fumarate [Flintstones with Iron Tab Chew] 18 mg PO DAILY Home Medications: Progesterone 150 mg IM QWEEK 06/11/18 [History] Pedi Mv No.79/Ferrous Fumarate [Flintstones with Iron Tab Chew] 18 mg PO DAILY 09/02/18 [History] Sertraline [Zoloft] 50 mg PO DAILY 09/02/18 [History] HydrOXYzine Pamoate [Vistaril] 50 mg PO Q12H PRN #4 capsule 09/14/18 [Rx] Allergies/Adverse Reactions: Allergy/AdvReac Type Severity Reaction Status Date / Time No Known Allergies Allergy Verified 07/19/18 16:57 Data Procedures and tests throughout hospitalization: Laboratory Tests 09/14/18 09/14/18 16:45 16:45 Urine Color Dark Yellow Urine Clarity Clear Urine pH 7.0 Ur Specific [place] 1.022 Urine Protein 30 H Urine Glucose (UA) Normal Urine Ketones Negative Urine Blood Negative Urine Nitrite Negative Urine Bilirubin Negative Urine Urobilinogen Normal Ur Leukocyte Esterase Trace H Urine Microscopic RBC 0-3 Urine Microscopic WBC 0-3 Ur Squamous Epith Cells Many H Urine Bacteria Few Hyaline Casts None Seen Ur Culture Indicated? NO. A Urine Opiates Screen Negative Ur Barbiturates Screen Negative Ur Phencyclidine Scrn Negative Ur Amphetamines Screen Negative U Benzodiazepines Scrn Negative Urine Cocaine Screen Negative U Marijuana (THC) Screen Negative Ur Drug Screen Interp See Below Labs on day of discharge: Labs from last 24 hours 09/14/18 09/14/18 16:45 16:45 Urine Color Dark Yellow Urine Clarity Clear Urine pH 7.0 Ur Specific [place] 1.022 Urine Protein 30 H Urine Glucose (UA) Normal Urine Ketones Negative Urine Blood Negative Urine Nitrite Negative Urine Bilirubin Negative Urine Urobilinogen Normal Ur Leukocyte Esterase Trace H Urine Microscopic RBC 0-3 Urine Microscopic WBC 0-3 Ur Squamous Epith Cells Many H Urine Bacteria Few Hyaline Casts None Seen Ur Culture Indicated? NO. A Urine Opiates Screen Negative Ur Barbiturates Screen Negative Ur Phencyclidine Scrn Negative Ur Amphetamines Screen Negative U Benzodiazepines Scrn Negative Urine Cocaine Screen Negative U Marijuana (THC) Screen Negative Ur Drug Screen Interp See Below Date of admission: 09/14/18 16:30 Discharging clinician: Natalya Locke Anticipated date of discharge: 09/14/18 - Patient Status Disposition: Home, Self-Care Condition: Good Overall status at discharge: patient is back to baseline - Discharge Instructions Follow Up With: Samantha Haque MD [Partnered Physician] - Additional Instructions: Keep all OB appointments LABOR AND DELIVERY DISCHARGE INSTRUCTIONS Signs and Symptoms to be Reported to your Doctor Immediately: * Sudden gush, continuous or intermittent lead of fluid from vagina (note the time of gush and color of fluid) * Onset of bright red vaginal bleeding with or without pain (if you had a vaginal exam during this visit you may notice some dark red spotting. This is normal.) * Lower abdominal cramping or backache that is premenstrual-like feeling. * More than 6 contractions in one hour. * Burning during urination, having to urinate more frequently or pain in your mid-back. * A change in the baby's activity. This could be an increase or decrease in activity. * Severe headache which does not go away with tylenol. * Sudden swelling in the face, hands, arms and/or legs. * Upper abdominal pain - sometimes associated with heartburn or nausea and is not relieved by Maalox, Mylanta or Tums. * Dizziness or blurred vision or visual disturbances (seeing stars/lights). * Kick Counts One hour after a meal, lay down on one side in a quiet place. Count the number of megan the baby moves during an hour. If less than 6 movements, notify your physician. Diet: *Force fluids - 8-10 tall glasses of fluid per day. May include popsicles and jello. *Limit caffeine - this includes chocolate, coffee, tea, any soft drink containing such as all rashel, Quinn Yellow and Mountain Dew - Diet and Activity Activity: increase activity as tolerated Diet: regular diet Hospital Course [facility] Reason for admission: other Discharge diagnosis: other Hospital course: Patient presents with c/o cramping and pressure since this morning. She endorses good fm and denies lof and vb. She was monitored for 2 hours without cervical change. Advised to increase water and rx for vistaril sent if she needs. Time Attestation: Total time spent providing and/or coordinating discharge services: Time Spent: Less than 30 minutes Exam - Constitutional General appearance IM: A&O X 3 - Respiratory Respiratory exam: Present: CTAB - Cardiovascular Cardiovascular exam IM: Present: RRR, +S1, +S2 - GI/Abdominal GI/Abdominal exam IM: normal bowel sounds, no peritoneal signs - Rectal Rectal exam: deferred - Uterine Tone: Firm - Extremities Exam Extremities exam IM: Present: full ROM, normal capillary refill, normal inspection, radial pulses palpable and symmetrical - Neurological Exam Neurological exam: alert, CN II-XII intact, normal gait, oriented X3, reflexes normal, no focal deficits - VTE Reasons for not Prescribing Prophylaxis: Treatment not Indicated - Low risk for VTE
== END | disposition home or self-care (01) ==
LOC: 1NENULAB
PROVIDERS: ADMIT Advanced Practice Midwife; ATTEND Advanced Practice Midwife

== ENCOUNTER 2018-09-24 | Inpatient (IN) ==
[~2018-09-24] MED LIST: *HR* Nalbuphine 10 MG/ML AMPUL IVP PRN; Famotidine 20 MG/2 ML VIAL IVP PRN; Metoclopramide 10 MG/2 ML VIAL IVP PRN; Naloxone 0.4 MG/ML INJ IVP PRN; Ondansetron 4 MG/2 ML VIAL IVP PRN; Ringers Solution, Lactated 1,000 ML IVC SCH
[2018-09-24] MEDS ORDERED: Ringers Solution, Lactated 1,000 ML ONE (00:06)
[2018-09-24 00:43] LABS: Amphetamine Screen,Urine Negative ng/mL (Cutoff=1000); Barbiturate Screen,Urine Negative ng/mL (Cutoff=200); Benzodiazepines Screen,Urine Negative ng/mL (Cutoff=200); Cannabinoid Screen,Urine Negative ng/mL (Cutoff = 50); Cocaine Screen,Urine Negative ng/mL (Cutoff= 300); Opiate Screen,Urine Negative ng/mL (Cutoff=300); Phencyclidine Screen,Urine Negative ng/mL (Cutoff=25)
[2018-09-24 00:46] LABS: Basophils # 0.1 K/mcL (0.0-0.2); Basophils % 0.4 %; Eosinophils # 0.1 K/mcL (0.0-0.6); Eosinophils % 0.9 %; Hematocrit 28.3 % (35.3-44.9); Hemoglobin 9.3 g/dL (11.5-15.4); Immature Granulocytes % 0.8 % (0-4); Lymphocytes # 2.6 K/mcL (0.6-4.6); Lymphocytes % 17.2 %; Mean Corpuscular HGB Conc 32.9 g/dL (31.6-35.5); Mean Corpuscular Hemoglobin 29.8 pg (28.0-33.3); Mean Corpuscular Volume 90.7 fL (83.0-100.0); Mean Platelet Volume 11.8 fL (9.4-12.4); Monocytes # 0.6 K/mcL (0.0-1.3); Monocytes % 4.1 %; Neutrophils # 11.7 K/mcL (1.6-8.9); Platelet Count 234 K/mcL (140-400); Red Blood Count 3.12 M/mcL (3.82-4.97); Segmented Neutrophils % 76.6 %
[2018-09-24] MEDS ORDERED: Famotidine 20 MG/2 ML VIAL IVP PRN (00:50)
[2018-09-24] MEDS ORDERED: Lidocaine -MPF 1% 5 ML AMPUL ONE (01:08)
[2018-09-24] MEDS ORDERED: Epidural Premix (fent/bupiv) 110 ML EP SCH (01:15)
--- NOTE | 2018-09-24 01:35 | OB/GYN History & Physical ---
Date of Encounter: 09/24/18 Time of Encounter: 01:33 Assessment and Plan (1) SROM (spontaneous rupture of membranes) Current visit: Yes Status: Acute SROM at appx 1500 on 09/23 Plan for vaginal delivery with likely delivery date 09/24 vs 09/25 (2) 37 weeks gestation of Current visit: Yes Status: Acute Plan on vaginal delivery with epidural Likely delivery date 09/24 vs 09/25 (3) Anemia Current visit: Yes Status: Acute Hgb 9.3 prior to delivery Repeat H&H Transfuse if Sx or if drops below 7 Qualifiers: Anemia type: unspecified type Qualified Code(s): D64.9 - Anemia, unspecified (4) NST (non-stress test) reactive Current visit: Yes Status: Acute FHR 130bpm, moderate variability, positive 15/15 accels, no decels History of Present Illness Chief complaint: Spontaneous rupture of membranes HPI: Ms. Fregoso is a 33 year old female at 37 weeks 1 day gestation who presents after SROM. She is . Patient does have a history of Chlamydia but denies other STDs. She denies other medical problems besides depression and has not had any surgeries besides D&C and leep procedures years ago. Her previous two live births have been born via vaginal delivery at full term. She admits to feeling the baby move and has been leaking clear fluid since approximately 1500 on 09/23. She denies contractions and leakage of blood at this time. She has had epidurals for her previous two live births and wishes for an epidural again for this delivery. Blood type A+ GBS neg HBSAG Non-reactive Hep C non-reactive Past Med Surg Social Fam HX - Past Medical History Medical history: no medical history Additional medical history: Crohns Psychiatric history: depression - Past Surgical History Surgical History: other Additional surgical history: leep and d&c - Social History Smoking Status: Current every day smoker Smokeless Tobacco Status: No Alcohol use: none Drug use: none - Family History Father Adopted: No Family Member Ethnicity: Non- Living Status: Still Living Hx Family Cardiac Disorders: No Hx Family Respiratory Disorders: No Hx Family Cancer: No Hx Family GI Disorders: No Hx Family Endocrine Disorder: No Hx Family Neuromuscular Disorders: No Hx Family Neurologic Disorders: No Hx Family HEENT Disorders: No Hx Family Autoimmune Disorders: No Obstetrical History - Pregnancies : 6 Para: 3 Term: 2 : 0 Ab's: 3 Livin Medications and Allergies Progesterone 150 mg IM QWEEK 06/11/18 [History] Pedi Mv No.79/Ferrous Fumarate [Flintstones with Iron Tab Chew] 18 mg PO DAILY 09/02/18 [History] Sertraline [Zoloft] 50 mg PO DAILY 09/02/18 [History] HydrOXYzine Pamoate [Vistaril] 50 mg PO Q12H PRN #4 capsule 09/14/18 [Rx] Allergy/AdvReac Type Severity Reaction Status Date / Time No Known Allergies Allergy Verified 07/19/18 16:57 Review of System OB All systems PM: reviewed and no additional remarkable complaints except as stated Exam - Constitutional Constitutional: well developed, well nourished, no acute distress - HEENT HEENT: EOMI, PERRL, Normocephaly, Mucus Membranes Moist - Neck Neck exam: full ROM, normal inspection - Lungs Respiratory exam: CTAB - Cardiovascular Cardiovascular exam: RRR, +S1, +S2 - Breasts Breast: bilateral: normal - Abdomen Abdomen: Present: bowel sounds normal, gravid, non tender - Extremities Extremities exam: normal inspection, pedal edema (trace), warm Deep Tendon Reflex Grade: 2+ Normal - Vulva Vulva: bilateral: normal - Vagina Vagina: Present: normal moisture - Cervix Dilation: 6 Station: -2 Results Result Diagrams: 09/24/18 00:20 Abnormal lab results WBC 15.3 K/mcL (4.3-11.1) H 09/24/18 00:20 RBC 3.12 M/mcL (3.82-4.97) L 09/24/18 00:20 Hgb 9.3 g/dL (11.5-15.4) L 09/24/18 00:20 Hct 28.3 % (35.3-44.9) L 09/24/18 00:20 Neutrophils # 11.7 K/mcL (1.6-8.9) H 09/24/18 00:20 All other labs normal. - VTE Reasons for not Prescribing Prophylaxis: Treatment not Indicated - Low risk for VTE
--- NOTE | 2018-09-24 01:47 | Anesthesia Evaluation PreOp ---
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 History: Denies Any Significant HX Other Medical History: Denies Any Significant HX Anesthesia History: No Prior Anesthetic Complications : Yes Test: Positive Alcohol Use: none Drug use: none Medications and Allergies Progesterone 150 mg IM QWEEK 06/11/18 [History] Pedi Mv No.79/Ferrous Fumarate [Flintstones with Iron Tab Chew] 18 mg PO DAILY 09/02/18 [History] Sertraline [Zoloft] 50 mg PO DAILY 09/02/18 [History] HydrOXYzine Pamoate [Vistaril] 50 mg PO Q12H PRN #4 capsule 09/14/18 [Rx] Allergy/AdvReac Type Severity Reaction Status Date / Time No Known Allergies Allergy Verified 07/19/18 16:57 - Meds/Allergy Pre-op Review Medications Reviewed: Yes Allergies Reviewed: Yes Beta Blockers on Current Med List: No Anesthesia Results - Labs 09/24/18 00:20 Anesthesia Exam - HEENT Pupil (Motor): Pupils equal Mallampati: II Teeth: Normal Oral Opening: Greater than 3 - AERONAUTICAL PROJECT ENGINEER LOC: Oriented AERONAUTICAL PROJECT ENGINEER Motor: Normal RUE, Normal LUE, Normal RLE, Normal LLE, Normal Face AERONAUTICAL PROJECT ENGINEER Sensory: Normal: RUE, LUE, RLE, LLE, Face - Cardiac Rhythm: Regular Murmur: None JVD: No Carotid Bruit: No - Pulmonary Breath Sounds: bilateral Clear Respiratory Effort: Symmetrical Anesthesia Assess/Plan ASA Score: 1 Level of consciousness: Cooperative Anesthetic Plan: Epidural
--- NOTE | 2018-09-24 01:50 | Anesthesia Procedures ---
Date of Encounter: 09/24/18 Time of Encounter: 01:20 Procedures: Anesthesia - Epidural/Spinal Patient ID/Chart reviewed: Yes Patient examined: Yes OB Eval: Gestational age: 37.1 OB Eval: : 3 OB Eval: Hx Para: 2 OB Eval: Contractions: Non-stressed pattern Consent Obtained: Yes Site Prep: Aseptic Technique, Sterile prep and drape, Povidone-Iodine 1% Patient position: upright Amount of Local Anesthetic used: 3 Touhy Needle Gauge: 18 Touhy Needle Depth (cm): 5 Catheter Depth at Skin (cm): 8 Test Dose (1.5% Lido + Epi): Volume given (mls): 3 Test Dose Result: Negative Infusion Rate (mls/hr): [address]: Tegaderm, Tape Interspace Used: L4-L5 Loss of Resistance (TIFFANY): Yes Blood: No CSF: No Paresthesia: No Vitals + FHT's: tolerated procedure well FHTS VSS throughout
[2018-09-24] MEDS ORDERED: Oxytocin 20 units/ LR 1000 mL 20 UNIT/1,000 ML BAG IVC ONE ×2 (02:52→15:52)
[2018-09-24] MEDS ORDERED: Menthol 9.1 MG LOZENGE PO PRN (06:13)
--- NOTE | 2018-09-24 13:54 | OB/GYN Procedure Note ---
Delivery - Delivery Date: 09/24/18 Provider: Samantha Haque Intrapartum events: none Delivery induction: none Delivery monitor: external FHT, external uterine Anesthesia: epidural Quantitated Blood Loss: 200 - Infant (s) Infant A Delivery Date: 09/24/18 Infant Delivery Time: Presentation: vertex Position: OA Route of delivery: Gender: Female Viability: Viable Pounds: 6 Ounces: 6 Weight Gram: 2905 kg at 1 minute: 8 at 5 mins: 9 Shoulder Dystocia: not encountered Specimens collected: cord blood Placenta: spontaneous Cord: nuchal cord, nuchal reduced - Repair Episiotomy: none Laceration Description: Periurethral, Superficial - Complications Delivery complications: none - Disposition Mom disposition: stable in LDR disposition: stable in LDR - Comments Comments: Spontaneous vaginal delivery of a viable female infant over an intact perineum. Cord was doubly clamped and cut the was placed on the mother's abdomen. Cord blood was collected. Placenta delivered spontaneously without any difficulty. Uterus was gently explored. No evidence of retained products of conception noted. Uterus was firm with minimal bleeding. She had a very small superficial right periurethral. This was closed with interrupted sutures. Estimated blood loss 200 mL. All sponge lap and instrument counts were correct 2. The baby and mother were doing well. We had no intrapartum complications.
[2018-09-24] MEDS ORDERED: Ibuprofen 600 MG TABLET PO PRN (16:21)
[2018-09-24] MEDS ORDERED: Acetaminophen 325 MG TABLET PO PRN (16:21)
[2018-09-24] MEDS ORDERED: Measles/Mumps/Rubella Vacc 0.5 ML VIAL SQ PRN (16:21)
[2018-09-24] MEDS ORDERED: Rho Immune Globulin 1,500 UNIT SYRINGE IM PRN (16:21)
[2018-09-25 05:58] LABS: Basophils % 0.4 %; Eosinophils # 0.2 K/mcL (0.0-0.6); Eosinophils % 1.9 %; Hematocrit 26.6 % (35.3-44.9); Hemoglobin 8.8 g/dL (11.5-15.4); Immature Granulocytes % 0.9 % (0-4); Lymphocytes # 2.7 K/mcL (0.6-4.6); Lymphocytes % 27.4 %; Mean Corpuscular HGB Conc 33.1 g/dL (31.6-35.5); Mean Corpuscular Hemoglobin 29.2 pg (28.0-33.3); Mean Corpuscular Volume 88.4 fL (83.0-100.0); Mean Platelet Volume 11.9 fL (9.4-12.4); Monocytes # 0.5 K/mcL (0.0-1.3); Neutrophils # 6.2 K/mcL (1.6-8.9); Platelet Count 214 K/mcL (140-400); Red Blood Count 3.01 M/mcL (3.82-4.97); Red Cell Distribution Width 13.7 % (11.5-14.5); Segmented Neutrophils % 64.4 %
[2018-09-25] MEDS: Oxytocin 20 units/ LR 1000 mL 20 UNIT/1,000 ML BAG IVC SCH (07:53)
[2018-09-25] MEDS ORDERED: Prenatal Vit/FA 1 EACH TABLET PO SCH (09:00)
[2018-09-25 09:02] VITALS: BP 120/77
--- NOTE | 2018-09-25 11:08 | Discharge Summary ---
Date of Encounter: 09/25/18 Time of Encounter: 11:03 - Discharge Diagnosis (1) Vaginal delivery Priority: Primary Status: Acute Comments: Pt meeting all milestones. She reports some cramping that is minimally improved with Motrin. No other complaints. She desires discharge home today. SHe plans to have her tubes tied. Desires depo bridge. (2) anemia Priority: Secondary Status: Acute Comments: Pt denies s/sx anemia. Home on iron. - Discharge Medications Prescriptions: New Ketorolac [Toradol] 10 mg PO Q6HR PRN 5 Days #20 tablet PRN Reason: cramping Docusate [Colace] 100 mg PO BID #60 capsule Ferrous Sulfate 325 mg PO DAILY #30 tablet Sertraline [Zoloft] 50 mg PO DAILY #30 tablet Continue Sertraline [Zoloft] 50 mg PO DAILY Pedi Mv No.79/Ferrous Fumarate [Flintstones with Iron Tab Chew] 18 mg PO DAILY Discontinued Progesterone 150 mg IM QWEEK HydrOXYzine Pamoate [Vistaril] 50 mg PO Q12H PRN #4 capsule PRN Reason: cramping Home Medications: Pedi Mv No.79/Ferrous Fumarate [Flintstones with Iron Tab Chew] 18 mg PO DAILY 09/02/18 [History] Sertraline [Zoloft] 50 mg PO DAILY 09/02/18 [History] Docusate [Colace] 100 mg PO BID #60 capsule 09/25/18 [Rx] Ferrous Sulfate 325 mg PO DAILY #30 tablet 09/25/18 [Rx] Ketorolac [Toradol] 10 mg PO Q6HR PRN 5 Days #20 tablet 09/25/18 [Rx] Sertraline [Zoloft] 50 mg PO DAILY #30 tablet 09/25/18 [Rx] Allergies/Adverse Reactions: Allergy/AdvReac Type Severity Reaction Status Date / Time No Known Allergies Allergy Verified 07/19/18 16:57 Data Procedures and tests throughout hospitalization: Laboratory Tests 09/24/18 09/24/18 09/25/18 00:20 00:20 05:00 WBC 15.3 H 9.7 RBC 3.12 L 3.01 L Hgb 9.3 L 8.8 L Hct 28.3 L 26.6 L MCV 90.7 88.4 MCH 29.8 29.2 MCHC 32.9 33.1 RDW 14.0 13.7 Plt Count 234 214 MPV 11.8 11.9 Immature Gran % 0.8 0.9 Seg Neutrophils % 76.6 64.4 Lymphocytes % 17.2 27.4 Monocytes % 4.1 5.0 Eosinophils % 0.9 1.9 Basophils % 0.4 0.4 Neutrophils # 11.7 H 6.2 Lymphocytes # 2.6 2.7 Monocytes # 0.6 0.5 Eosinophils # 0.1 0.2 Basophils # 0.1 0.0 Urine Opiates Screen Negative Ur Barbiturates Screen Negative Ur Phencyclidine Scrn Negative Ur Amphetamines Screen Negative U Benzodiazepines Scrn Negative Urine Cocaine Screen Negative U Marijuana (THC) Screen Negative Ur Drug Screen Interp See Below Labs on day of discharge: Labs from last 24 hours 09/25/18 05:00 WBC 9.7 RBC 3.01 L Hgb 8.8 L Hct 26.6 L MCV 88.4 MCH 29.2 MCHC 33.1 RDW 13.7 Plt Count 214 MPV 11.9 Immature Gran % 0.9 Seg Neutrophils % 64.4 Lymphocytes % 27.4 Monocytes % 5.0 Eosinophils % 1.9 Basophils % 0.4 Neutrophils # 6.2 Lymphocytes # 2.7 Monocytes # 0.5 Eosinophils # 0.2 Basophils # 0.0 Date of admission: 09/24/18 00:00 Consults: 09/24/18 16:21 Consult to Properties Supervisor [CONS] Routine Comment: Vaginal delivery, consult needed Discharging clinician: Sabiha Rodriguez Anticipated date of discharge: 09/25/18 - Patient Status Disposition: Home, Self-Care Condition: Good Functional capacity at discharge: independent ambulation Overall status at discharge: patient is progressing back to baseline - Discharge Instructions Follow Up With: Samantha Haque MD [Partnered Physician] - - Diet and Activity Activity: increase activity as tolerated Diet: regular diet Hospital Course Reason for admission: active labor Delivery: Episiotomy: none Laceration: other (periurethral) Other procedures: none complications: none Discharge diagnosis: IUP at term delivered [place] baby: female Hospital course: - Delivery Date: 09/24/18 Provider: Samantha Haque Intrapartum events: none Delivery induction: none Delivery monitor: external FHT, external uterine Anesthesia: epidural Quantitated Blood Loss: 200 - Infant (s) A Infant Delivery Date: 09/24/18 Infant Delivery Time: : Presentation: vertex Position: OA Route of delivery: Gender: Female Viability: Viable Pounds: 6 Ounces: 6 Weight Gram: 2905 kg at 1 minute: 8 at 5 mins: 9 Shoulder Dystocia: not encountered Specimens collected: cord blood Placenta: spontaneous Cord: nuchal cord, nuchal reduced - Repair Episiotomy: none Laceration Description: Periurethral, Superficial - Complications Delivery complications: none - Disposition Mom disposition: home PPD1 disposition: home with mother, bottle feeding Time Attestation: Total time spent providing and/or coordinating discharge services: Time Spent: Less than 30 minutes Exam - Constitutional Vitals: Temp Pulse Resp BP Pulse Ox 97.7 F 83 16 120/77 97 09/25/18 09:01 09/25/18 09:01 09/25/18 09:01 09/25/18 09:01 09/25/18 09:01 General appearance IM: A&O X 3 - Respiratory Respiratory exam: Present: CTAB - Cardiovascular Cardiovascular exam IM: Present: RRR - GI/Abdominal GI/Abdominal exam IM: soft - Uterine Tone: Firm Uterus Position: 1 Finger Below Umbilicus - Extremities Exam Extremities exam IM: Present: normal inspection - Neurological Exam Neurological exam: normal gait, oriented X3 - Psychiatric Additional comments: reports good mood but desires to restart zoloft due to history of depression
== END 2018-09-25 15:43 | disposition home or self-care (01) | DRG 807 ==
LOC: 1NENULAB → 1NENUOBS 15:50
PROVIDERS: ADMIT Registered Nurse; ATTEND Registered Nurse

== ENCOUNTER 2019-03-28 20:55 | Observation (INO) ==
[2019-03-28] MEDS ORDERED: Isovue-370 500 ML BOTTLE IVP ONE (21:12)
[2019-03-28] MEDS ORDERED: *HR* FentaNYL (PF) 100 MCG/2 ML VIAL IVP ONE (21:13)
[2019-03-28 21:23] LABS: Bilirubin,Urine Negative (Negative); Blood,Urine Negative (Negative); Clarity,Urine Clear (Clear); Color,Urine Yellow (Yellow); Glucose,Urine (UA) Normal (Normal); Ketones,Urine Negative (Negative); Leukocyte Esterase,Urine Negative (Negative); Nitrite,Urine Negative (Negative); Protein,Urine Trace mg/dL (Neg-Trace); Urobilinogen,Urine Normal (Normal)
[2019-03-28 21:34] LABS: Basophils # 0.1 K/mcL (0.0-0.2); Basophils % 0.5 %; Eosinophils # 0.2 K/mcL (0.0-0.6); Eosinophils % 1.9 %; Hematocrit 32.6 % (35.3-44.9); Hemoglobin 10.9 g/dL (11.5-15.4); Immature Granulocytes % 0.4 % (0-4); Lymphocytes # 3.2 K/mcL (0.6-4.6); Lymphocytes % 30.4 %; Mean Corpuscular HGB Conc 33.4 g/dL (31.6-35.5); Mean Corpuscular Hemoglobin 29.5 pg (28.0-33.3); Mean Corpuscular Volume 88.1 fL (83.0-100.0); Mean Platelet Volume 9.5 fL (9.4-12.4); Monocytes # 0.6 K/mcL (0.0-1.3); Monocytes % 5.6 %; Neutrophils # 6.5 K/mcL (1.6-8.9); Platelet Count 358 K/mcL (140-400); Red Cell Distribution Width 14.4 % (11.5-14.5); Segmented Neutrophils % 61.2 %; White Blood Count 10.5 K/mcL (4.3-11.1)
[2019-03-28 21:54] LABS: Alanine Aminotransferase 20 Units/L (7-52); Albumin 4.3 g/dL (3.5-5.7); Albumin/Globulin Ratio 1.4 (1.1-2.2); Alkaline Phosphatase 72 Units/L (34-104); Aspartate Amino Transferase 16 Units/L (13-39); BUN/Creatinine Ratio 17 (6-26); Bilirubin,Indirect 0.2 mg/dL (0.0-1.2); Bilirubin,Total 0.2 mg/dL (0.3-1.0); Blood Urea Nitrogen 11 mg/dL (6-20); Calcium 10.2 mg/dL (8.6-10.3); Carbon Dioxide 28 mEq/L (23-29); Chloride 102 mEq/L (98-107); Glucose 112 mg/dL (70-105); Osmolality,Calculated 284 (280-300); Potassium 3.6 mEq/L (3.5-5.1); Sodium 137 mEq/L (136-145); Total Protein 7.3 g/dL (6.4-8.9); eGFR For African Americans > 60 (> 60); eGFR For Non-African Americans > 60 (> 60)
[2019-03-28] MEDS ORDERED: Ketamine *HR* 14 MG in 0.9 % Sodium Chloride 100 ML IVPB ONE (22:04)
[2019-03-28] MEDS ORDERED: methylPREDNISolone 125 MG/2 ML VIAL IVP ONE (22:46)
[2019-03-28] MEDS ORDERED: MetroNIDAZOLE 500 MG/100 ML 500 MG/100 ML BAG IVPB ONE (22:46)
[2019-03-28] MEDS ORDERED: *HR* LORazepam 2 MG/ML VIAL IVP ONE (23:07)
[2019-03-28] MEDS ORDERED: Ondansetron 4 MG/2 ML VIAL IVP PRN (23:29)
[2019-03-28] MEDS ORDERED: Naloxone 0.4 MG/ML INJ IVP PRN ×2 (23:29→23:34)
[2019-03-28 23:57] LABS: C-Reactive Protein < 5 mg/L (Less than 10)
[2019-03-29] MEDS: Ketorolac 30 MG/ML VIAL IVP PRN ×3 (01:16→20:18)
[2019-03-29] MEDS: Ringers Solution, Lactated 1,000 ML IVC SCH ×2 (02:51→09:10)
[2019-03-29 03:53] LABS: Basophils % 0.3 %; Eosinophils % 0.2 %; Hematocrit 32.8 % (35.3-44.9); Hemoglobin 10.7 g/dL (11.5-15.4); Immature Granulocytes % 0.4 % (0-4); Lymphocytes # 1.1 K/mcL (0.6-4.6); Lymphocytes % 8.4 %; Mean Corpuscular HGB Conc 32.6 g/dL (31.6-35.5); Mean Corpuscular Hemoglobin 29.3 pg (28.0-33.3); Mean Corpuscular Volume 89.9 fL (83.0-100.0); Mean Platelet Volume 9.8 fL (9.4-12.4); Monocytes # 0.2 K/mcL (0.0-1.3); Monocytes % 1.5 %; Neutrophils # 12.1 K/mcL (1.6-8.9); Platelet Count 329 K/mcL (140-400); Red Blood Count 3.65 M/mcL (3.82-4.97); Red Cell Distribution Width 14.3 % (11.5-14.5); Segmented Neutrophils % 89.2 %; White Blood Count 13.6 K/mcL (4.3-11.1)
[2019-03-29 04:15] LABS: Alanine Aminotransferase 22 Units/L (7-52); Albumin 4.2 g/dL (3.5-5.7); Albumin/Globulin Ratio 1.4 (1.1-2.2); Alkaline Phosphatase 72 Units/L (34-104); Aspartate Amino Transferase 24 Units/L (13-39); BUN/Creatinine Ratio 22 (6-26); Bilirubin,Total 0.2 mg/dL (0.3-1.0); Blood Urea Nitrogen 15 mg/dL (6-20); Calcium 10.2 mg/dL (8.6-10.3); Carbon Dioxide 22 mEq/L (23-29); Chloride 103 mEq/L (98-107); Globulin 3.1 g/dL (2.4-3.5); Glucose 121 mg/dL (70-105); Magnesium 1.9 mg/dL (1.6-2.6); Osmolality,Calculated 282 (280-300); Potassium 4.3 mEq/L (3.5-5.1); Sodium 135 mEq/L (136-145); Total Protein 7.3 g/dL (6.4-8.9); eGFR For African Americans > 60 (> 60); eGFR For Non-African Americans > 60 (> 60)
[2019-03-29] MEDS: *HR* Heparin 5,000 UNIT/ML VIAL SQ SCH ×3 (06:01→19:56)
[2019-03-29] MEDS: MethylPREDNISolone 40 MG/ML VIAL IVP SCH (07:29)
[2019-03-30] MEDS: *HR* Heparin 5,000 UNIT/ML VIAL SQ SCH (02:22)
[2019-03-30] MEDS: Ketorolac 30 MG/ML VIAL IVP PRN (03:18)
[2019-03-30] MEDS: MethylPREDNISolone 40 MG/ML VIAL IVP SCH (09:05)
[2019-03-30 10:23] VITALS: BP 109/70
== END 2019-03-30 13:02 | disposition home or self-care (01) ==
LOC: EMEROOARM 20:55 → 3ANU 20:55 → SUATTDRO 23:50 → 3ANU 03-29 00:20
PROVIDERS: ADMIT Internal Medicine; ATTEND Internal Medicine

== ENCOUNTER 2020-02-29 21:34 | Observation (INO) ==
[2020-02-29 21:54] LABS: Bacteria,Urine Few per hpf (None-Few); Bilirubin,Urine Negative (Negative); Blood,Urine Negative (Negative); Clarity,Urine Turbid (Clear); Color,Urine Light-Yellow (Yellow); Glucose,Urine (UA) Normal (Normal); Ketones,Urine Negative (Negative); Leukocyte Esterase,Urine Small (Negative); Mucus,Urine Few per lpf (None-Few); Nitrite,Urine Negative (Negative); Protein,Urine Trace mg/dL (Neg-Trace); Specific Gravity,Urine 1.021 (1.010-1.025); Squamous Epithelial Cell,Urine Few per hpf (None-Few); Urobilinogen,Urine Normal (Normal)
[2020-02-29 23:51] LABS: Candida DNA Not Detected (Not Detect); Gardnerella DNA Not Detected (Not Detect); Trichomonas DNA Not Detected (Not Detect)
== END 2020-02-29 22:43 | disposition home or self-care (01) ==
LOC: 1NENULAB
PROVIDERS: ADMIT Obstetrics & Gynecology; ATTEND Obstetrics & Gynecology

== ENCOUNTER 2020-03-29 19:42 | Observation (INO) ==
[2020-03-29 18:29] LABS: Amorphous Sediment,Urine Few per hpf (None-Few); Bacteria,Urine Few per hpf (None-Few); Bilirubin,Urine Negative (Negative); Blood,Urine Negative (Negative); Clarity,Urine Turbid (Clear); Color,Urine Light-Orange (Yellow); Glucose,Urine (UA) Normal (Normal); Ketones,Urine Negative (Negative); Leukocyte Esterase,Urine Large (Negative); Mucus,Urine Few per lpf (None-Few); Nitrite,Urine Negative (Negative); Protein,Urine 70 mg/dL (Neg-Trace); Renal Epithelial Cells,Urine Few per hpf (None-Few); Specific Gravity,Urine 1.024 (1.010-1.025); Squamous Epithelial Cell,Urine Moderate per hpf (None-Few); Transitional Epi Cells,Urine Few per hpf (None-Few)
[2020-03-29] MEDS ORDERED: Betamethasone Acet/SodPhos 30 MG/5 ML VIAL IM SCH (21:15)
== END 2020-03-29 21:24 | disposition home or self-care (01) ==
LOC: 1NENULAB
PROVIDERS: ADMIT Obstetrics & Gynecology; ATTEND Obstetrics & Gynecology

== ENCOUNTER → 2020-04-01 21:42 | Observation (INO) ==
[2020-04-01 21:06] LABS: Bacteria,Urine Few per hpf (None-Few); Bilirubin,Urine Negative (Negative); Blood,Urine Negative (Negative); Clarity,Urine Turbid (Clear); Color,Urine Yellow (Yellow); Glucose,Urine (UA) Normal (Normal); Ketones,Urine Negative (Negative); Leukocyte Esterase,Urine Moderate (Negative); Mucus,Urine Few per lpf (None-Few); Nitrite,Urine Negative (Negative); Protein,Urine 30 mg/dL (Neg-Trace); RBC,Urine 0-3 per hpf (0-3); Specific Gravity,Urine 1.025 (1.010-1.025); Squamous Epithelial Cell,Urine Moderate per hpf (None-Few); Urobilinogen,Urine Normal (Normal)
== END | disposition home or self-care (01) ==
LOC: 1NENULAB
PROVIDERS: ADMIT Obstetrics & Gynecology; ATTEND Obstetrics & Gynecology

== ENCOUNTER → 2020-04-11 18:52 | Observation (INO) ==
[2020-04-11 17:54] LABS: Bacteria,Urine Few per hpf (None-Few); Bilirubin,Urine Negative (Negative); Blood,Urine Negative (Negative); Clarity,Urine Turbid (Clear); Color,Urine Yellow (Yellow); Glucose,Urine (UA) Normal (Normal); Ketones,Urine Negative (Negative); Leukocyte Esterase,Urine Large (Negative); Mucus,Urine Few per lpf (None-Few); Nitrite,Urine Negative (Negative); Protein,Urine Trace mg/dL (Neg-Trace); Specific Gravity,Urine 1.022 (1.010-1.025); Squamous Epithelial Cell,Urine Moderate per hpf (None-Few); Urobilinogen,Urine Normal (Normal)
== END | disposition home or self-care (01) ==
LOC: 1NENULAB
PROVIDERS: ADMIT Obstetrics & Gynecology; ATTEND Obstetrics & Gynecology

== ENCOUNTER → 2020-04-16 19:14 | Observation (INO) ==
[2020-04-16 17:49] LABS: Bacteria,Urine Few per hpf (None-Few); Bilirubin,Urine Negative (Negative); Blood,Urine Negative (Negative); Calcium Oxalate Crystals,Urine Present; Clarity,Urine Clear (Clear); Color,Urine Light-Yellow (Yellow); Glucose,Urine (UA) Normal (Normal); Ketones,Urine Negative (Negative); Leukocyte Esterase,Urine Trace (Negative); Mucus,Urine Few per lpf (None-Few); Nitrite,Urine Negative (Negative); PH,Urine 6.5 pH Units (5.0-8.0); Protein,Urine Negative (Neg-Trace); RBC,Urine 0-3 per hpf (0-3); Specific Gravity,Urine 1.013 (1.010-1.025); Squamous Epithelial Cell,Urine Few per hpf (None-Few); Urobilinogen,Urine Normal (Normal); WBC,Urine 0-3 per hpf (0-3)
[~2020-04-16 19:14] MED LIST changes: -*HR* Nalbuphine 10 MG/ML AMPUL IVP PRN; -Famotidine 20 MG/2 ML VIAL IVP PRN; -Metoclopramide 10 MG/2 ML VIAL IVP PRN; -Naloxone 0.4 MG/ML INJ IVP PRN; -Ondansetron 4 MG/2 ML VIAL IVP PRN; -Ringers Solution, Lactated 1,000 ML IVC SCH; +Terbutaline 1 MG/ML VIAL SQ ONE
== END | disposition home or self-care (01) ==
LOC: 1NENULAB
PROVIDERS: ADMIT Obstetrics & Gynecology; ATTEND Obstetrics & Gynecology

== ENCOUNTER 2020-04-24 17:10 | Observation (INO) ==
[2020-04-24 13:23] VITALS: BP 129/76
[2020-04-24 13:56] LABS: Bacteria,Urine Few per hpf (None-Few); Bilirubin,Urine Negative (Negative); Blood,Urine Negative (Negative); Clarity,Urine Turbid (Clear); Color,Urine Yellow (Yellow); Glucose,Urine (UA) Normal (Normal); Ketones,Urine Negative (Negative); Leukocyte Esterase,Urine Large (Negative); Mucus,Urine Few per lpf (None-Few); Nitrite,Urine Negative (Negative); Protein,Urine 30 mg/dL (Neg-Trace); Specific Gravity,Urine 1.022 (1.010-1.025); Squamous Epithelial Cell,Urine Moderate per hpf (None-Few); Urobilinogen,Urine Normal (Normal); WBC,Urine 15-30 per hpf (0-3)
[2020-04-24 16:34] LABS: Basophils # 0.1 K/mcL (0.0-0.2); Basophils % 0.4 %; Eosinophils # 0.1 K/mcL (0.0-0.6); Eosinophils % 0.6 %; Hematocrit 27.2 % (35.3-44.9); Hemoglobin 8.9 g/dL (11.5-15.4); Immature Granulocytes % 0.9 % (0-4); Lymphocytes # 1.7 K/mcL (0.6-4.6); Lymphocytes % 13.8 %; Mean Corpuscular HGB Conc 32.7 g/dL (31.6-35.5); Mean Corpuscular Volume 91.6 fL (83.0-100.0); Mean Platelet Volume 10.6 fL (9.4-12.4); Monocytes # 0.6 K/mcL (0.0-1.3); Neutrophils # 9.8 K/mcL (1.6-8.9); Platelet Count 318 K/mcL (140-400); Red Blood Count 2.97 M/mcL (3.82-4.97); Red Cell Distribution Width 14.5 % (11.5-14.5); Segmented Neutrophils % 79.3 %; White Blood Count 12.3 K/mcL (4.3-11.1)
[~2020-04-24 17:10] MED LIST changes: +Famotidine 20 MG/2 ML VIAL IVP ONE; +Ondansetron 4 MG/2 ML VIAL IVP ONE; +Ringers Solution, Lactated 1,000 ML IVC ONE; -Terbutaline 1 MG/ML VIAL SQ ONE
== END 2020-04-24 17:37 | disposition home or self-care (01) ==
LOC: 1NENULAB
PROVIDERS: ADMIT Obstetrics & Gynecology; ATTEND Obstetrics & Gynecology

== ENCOUNTER 2020-05-15 22:01 | Inpatient (IN) ==
[2020-05-15 16:37] LABS: Amorphous Sediment,Urine Few per hpf (None-Few); Bacteria,Urine Few per hpf (None-Few); Bilirubin,Urine Negative (Negative); Blood,Urine Negative (Negative); Clarity,Urine Clear (Clear); Color,Urine Yellow (Yellow); Glucose,Urine (UA) Normal (Normal); Ketones,Urine Negative (Negative); Leukocyte Esterase,Urine Small (Negative); Mucus,Urine Few per lpf (None-Few); Nitrite,Urine Negative (Negative); PH,Urine 6.5 pH Units (5.0-8.0); Protein,Urine 30 mg/dL (Neg-Trace); RBC,Urine 0-3 per hpf (0-3); Specific Gravity,Urine 1.022 (1.010-1.025); Squamous Epithelial Cell,Urine Few per hpf (None-Few); Urobilinogen,Urine Normal (Normal)
[2020-05-15 18:43] LABS: Basophils # 0.1 K/mcL (0.0-0.2); Basophils % 0.6 %; Eosinophils # 0.1 K/mcL (0.0-0.6); Hematocrit 30.7 % (35.3-44.9); Hemoglobin 9.7 g/dL (11.5-15.4); Immature Granulocytes % 1.2 % (0-4); Lymphocytes # 2.3 K/mcL (0.6-4.6); Mean Corpuscular HGB Conc 31.6 g/dL (31.6-35.5); Mean Corpuscular Hemoglobin 28.4 pg (28.0-33.3); Mean Corpuscular Volume 89.8 fL (83.0-100.0); Mean Platelet Volume 11.8 fL (9.4-12.4); Monocytes # 0.7 K/mcL (0.0-1.3); Monocytes % 5.4 %; Neutrophils # 9.2 K/mcL (1.6-8.9); Platelet Count 356 K/mcL (140-400); Red Blood Count 3.42 M/mcL (3.82-4.97); Red Cell Distribution Width 14.1 % (11.5-14.5); Segmented Neutrophils % 73.8 %; White Blood Count 12.5 K/mcL (4.3-11.1)
[~2020-05-15 22:01] MED LIST changes: +*HR* FentaNYL (PF) 100 MCG/2 ML VIAL IVP PRN; +EPHEDrine 50 MG/ML VIAL IVP PRN; +Epidural Premix (fent/bupiv) 110 ML EP SCH; -Famotidine 20 MG/2 ML VIAL IVP ONE; +Famotidine 20 MG/2 ML VIAL IVP PRN; +Lidocaine 1% 20 ML MDV INFILT PRN; +Metoclopramide 10 MG/2 ML VIAL IVP PRN; +Naloxone 0.4 MG/ML INJ IVP PRN; +Penicillin G Potassium 5,000,000 UNIT in 0.9 % Sodium Chloride Mini Bag 100 ML IVPB ONE; -Ringers Solution, Lactated 1,000 ML IVC ONE; +Ringers Solution, Lactated 1,000 ML ONE
[2020-05-15] MEDS ORDERED: Epidural Premix (fent/bupiv) 110 ML EP ONE (22:02)
[2020-05-15 22:19] LABS: Amphetamine Screen,Urine Negative ng/mL (Cutoff=1000); Barbiturate Screen,Urine Negative ng/mL (Cutoff=200); Benzodiazepines Screen,Urine Negative ng/mL (Cutoff=200); Cannabinoid Screen,Urine Positive ng/mL (Cutoff = 50); Cocaine Screen,Urine Negative ng/mL (Cutoff= 300); Opiate Screen,Urine Positive ng/mL (Cutoff=300); Phencyclidine Screen,Urine Negative ng/mL (Cutoff=25)
[2020-05-15] MEDS: Penicillin G Potassium 2,500,000 UNIT/105 ML MLS IVPB SCH (22:33)
[2020-05-16] MEDS: Penicillin G Potassium 2,500,000 UNIT/105 ML MLS IVPB SCH ×3 (02:42→08:51)
[2020-05-16 07:55] LABS: Protein/Creatinine Ratio,Urine 0.91 mg/mg (0.00-0.20)
[2020-05-16 08:06] LABS: Alanine Aminotransferase 8 Units/L (7-52); Aspartate Amino Transferase 14 Units/L (13-39); BUN/Creatinine Ratio 29 (6-26); Blood Urea Nitrogen 12 mg/dL (6-20); Lactate Dehydrogenase 149 Units/L (140-271); eGFR For African Americans > 60 (> 60); eGFR For Non-African Americans > 60 (> 60)
[2020-05-16] MEDS ORDERED: Ropivacaine/PF 0.2% 20 ML VIAL ONE (08:16)
[2020-05-16] MEDS ORDERED: *HR* FentaNYL (PF) 100 MCG/2 ML VIAL ONE (08:16)
[2020-05-16] MEDS ORDERED: Ondansetron 4 MG/2 ML VIAL IVP PRN (08:30)
[2020-05-16] MEDS: Ringers Solution, Lactated 1,000 ML IVC SCH ×2 (08:46)
[2020-05-16] MEDS ORDERED: Oxytocin 20 units/ LR 1000 mL 20 UNIT/1,000 ML BAG IVC SCH ×2 (11:30→14:17)
[2020-05-16] MEDS ORDERED: Lanolin 7 G OINT...G. TP PRN (14:17)
[2020-05-16] MEDS ORDERED: Rho Immune Globulin 1,500 UNIT SYRINGE IM PRN (14:17)
[2020-05-16] MEDS ORDERED: Measles/Mumps/Rubella Vacc 0.5 ML VIAL SQ PRN (14:17)
[2020-05-16] MEDS ORDERED: Acetaminophen 325 MG TABLET PO PRN (14:17)
[2020-05-16] MEDS: Ibuprofen 600 MG TABLET PO PRN ×2 (15:10→20:35)
[2020-05-17 08:35] VITALS: BP 116/75
[2020-05-17] MEDS ORDERED: Prenatal Vit/FA 1 EACH TABLET PO SCH (09:00)
== END 2020-05-17 11:40 | disposition home or self-care (01) | DRG 560 ==
LOC: 1NENULAB → 1NENUOBS 05-16 14:09
PROVIDERS: ADMIT Student in an Organized Health Care Education/Training Program; ATTEND Student in an Organized Health Care Education/Training Program

== ENCOUNTER 2021-09-12 16:50 | Observation (INO) ==
[2021-09-12 18:19] LABS: Basophils # 0.1 K/mcL (0.0-0.2); Basophils % 0.3 %; Eosinophils # 0.2 K/mcL (0.0-0.6); Eosinophils % 0.8 %; Hematocrit 32.8 % (35.3-44.9); Hemoglobin 10.9 g/dL (11.5-15.4); Immature Granulocytes % 0.6 % (0-4); Lymphocytes # 2.9 K/mcL (0.6-4.6); Lymphocytes % 15.6 %; Mean Corpuscular HGB Conc 33.2 g/dL (31.6-35.5); Mean Corpuscular Hemoglobin 29.8 pg (28.0-33.3); Mean Corpuscular Volume 89.6 fL (83.0-100.0); Mean Platelet Volume 9.8 fL (9.4-12.4); Monocytes # 0.8 K/mcL (0.0-1.3); Monocytes % 4.3 %; Neutrophils # 14.6 K/mcL (1.6-8.9); Platelet Count 461 K/mcL (140-400); Red Blood Count 3.66 M/mcL (3.82-4.97); Red Cell Distribution Width 16.6 % (11.5-14.5); Segmented Neutrophils % 78.4 %; White Blood Count 18.5 K/mcL (4.3-11.1)
[2021-09-12 18:27] LABS: Bilirubin,Urine Negative (Negative); Blood,Urine Negative (Negative); Clarity,Urine Clear (Clear); Color,Urine Light-Yellow (Yellow); Glucose,Urine (UA) Normal (Normal); Ketones,Urine Negative (Negative); Leukocyte Esterase,Urine Negative (Negative); Nitrite,Urine Negative (Negative); Protein,Urine Negative (Neg-Trace); Specific Gravity,Urine 1.014 (1.010-1.025); Urobilinogen,Urine Normal (Normal)
[2021-09-12 18:31] LABS: BUN/Creatinine Ratio 18 (6-26); Blood Urea Nitrogen 9 mg/dL (6-20); Carbon Dioxide 24 mEq/L (23-29); Chloride 103 mEq/L (98-107); Glucose 86 mg/dL (70-105); Osmolality,Calculated 278 (280-300); Potassium 3.6 mEq/L (3.5-5.1); Sodium 135 mEq/L (136-145); eGFR For African Americans > 60 (> 60); eGFR For Non-African Americans > 60 (> 60)
[2021-09-12] MEDS ORDERED: *HR* HYDROcodone/Acet 5/325 mg TABLET PO ONE (19:07)
[2021-09-12] MEDS ORDERED: 0.9 % Sodium Chloride 1,000 ML IVC ONE (19:50)
[2021-09-12] MEDS ORDERED: Piperacillin/Tazobactam 3.375 GM in 0.9 % Sodium Chloride Mini Bag 100 ML IVPB ONE (19:50)
[2021-09-12] MEDS ORDERED: Melatonin 3 MG TABLET PO PRN (20:23)
[2021-09-12] MEDS ORDERED: Naloxone 0.4 MG/ML INJ IVP PRN (20:23)
[2021-09-12] MEDS ORDERED: Acetaminophen 325 MG TABLET PO PRN (20:23)
[2021-09-12] MEDS ORDERED: *HR* Dextrose 50 % in Water (Syg) 50 ML SYRINGE IVP PRN (20:25)
[2021-09-12] MEDS ORDERED: D5% in Water 1,000 ML IVC PRN (20:25)
[2021-09-12] MEDS ORDERED: Dextrose 4 GM Chewable Tablets PO PRN ×2 (20:25)
[2021-09-12] MEDS ORDERED: *HR* LORazepam 0.5 MG TABLET PO PRN (21:45)
[2021-09-12] MEDS ORDERED: Saliva Stimulant 44.3ml BOTTLE PO PRN (21:46)
[2021-09-12] MEDS: Lactobacillus 1 EACH CAP.SPRINK PO SCH (22:42)
[2021-09-13] MEDS ORDERED: Ringers Solution, Lactated 1,000 ML IVC SCH (03:00)
[2021-09-13 03:38] VITALS: TEMP 98.2
[2021-09-13] MEDS ORDERED: Piperacillin/Tazobactam 3.375 GM in 0.9 % Sodium Chloride Mini Bag 100 ML IVPB SCH (04:00)
[2021-09-13 04:37] LABS: Basophils % 0.3 %; Eosinophils # 0.4 K/mcL (0.0-0.6); Eosinophils % 3.4 %; Hematocrit 28.3 % (35.3-44.9); Immature Granulocytes % 0.5 % (0-4); Lymphocytes # 3.5 K/mcL (0.6-4.6); Lymphocytes % 30.9 %; Mean Corpuscular HGB Conc 31.1 g/dL (31.6-35.5); Mean Corpuscular Hemoglobin 28.5 pg (28.0-33.3); Mean Corpuscular Volume 91.6 fL (83.0-100.0); Mean Platelet Volume 9.6 fL (9.4-12.4); Monocytes # 0.6 K/mcL (0.0-1.3); Monocytes % 5.1 %; Neutrophils # 6.8 K/mcL (1.6-8.9); Platelet Count 361 K/mcL (140-400); Red Blood Count 3.09 M/mcL (3.82-4.97); Red Cell Distribution Width 16.8 % (11.5-14.5); Segmented Neutrophils % 59.8 %; White Blood Count 11.4 K/mcL (4.3-11.1)
[2021-09-13 04:39] LABS: Hemoglobin 8.8 g/dL (11.5-15.4)
[2021-09-13 04:45] LABS: Prothrombin Time 11.6 Seconds (9.4-12.1)
[2021-09-13 04:47] LABS: Activated Partial Thrombo Time 26.5 Seconds (26.0-36.0)
[2021-09-13 04:59] LABS: % Iron Saturation 7 % (15-50); Alanine Aminotransferase 10 Units/L (7-52); Albumin 3.3 g/dL (3.5-5.7); Albumin/Globulin Ratio 1.5 (1.1-2.2); Alkaline Phosphatase 64 Units/L (34-104); Aspartate Amino Transferase 10 Units/L (13-39); BUN/Creatinine Ratio 13 (6-26); Bilirubin,Total 0.3 mg/dL (0.3-1.0); Blood Urea Nitrogen 7 mg/dL (6-20); Calcium 8.6 mg/dL (8.6-10.3); Carbon Dioxide 24 mEq/L (23-29); Chloride 104 mEq/L (98-107); Globulin 2.2 g/dL (2.4-3.5); Glucose 85 mg/dL (70-105); Iron 29 mcg/dL (50-170); Lipase 23 Units/L (11-82); Magnesium 1.8 mg/dL (1.6-2.6); Osmolality,Calculated 281 (280-300); Phosphorous 2.8 mg/dL (2.7-4.5); Potassium 3.3 mEq/L (3.5-5.1); Sodium 137 mEq/L (136-145); Total Protein 5.5 g/dL (6.4-8.9); Transferrin 282 mg/dL (203-362); eGFR For African Americans > 60 (> 60); eGFR For Non-African Americans > 60 (> 60)
[2021-09-13 05:07] LABS: Procalcitonin < 0.02 ng/mL (0.00-0.15)
[2021-09-13 05:17] LABS: Ferritin 30 ng/mL (10-120)
[2021-09-13 05:24] LABS: Folate 5.3 ng/mL (3.0-16.0); Vitamin B12 163 pg/mL (250-1100)
[2021-09-13] MEDS ORDERED: 0.9 % Sodium Chloride 1,000 ML IVC SCH (05:30)
[2021-09-13] MEDS ORDERED: *HR* Enoxaparin 40 MG/0.4 ML SYRINGE SQ SCH (06:00)
[2021-09-13] MEDS ORDERED: Iron Sucrose Complex 400 MG in 0.9 % Sodium Chloride 250 ML IVPB ONE (06:00)
[2021-09-13 07:22] VITALS: BP 107/61; PULSE 83; O2SAT 96
[2021-09-13] MEDS: Lactobacillus 1 EACH CAP.SPRINK PO SCH (08:33)
[2021-09-13] MEDS ORDERED: Cyanocobalamin (B-12) 1,000 MCG TABLET PO SCH (09:00)
[2021-09-13] MEDS ORDERED: Multivit/Ca/Min/Fe/FA 1 TAB TABLET PO SCH (09:00)
[2021-09-13] MEDS ORDERED: predniSONE 20 MG TABLET PO SCH (09:00)
[2021-09-13] MEDS ORDERED: Nicotine 14 MG PATCH.TD24 TD SCH (09:00)
[2021-09-13 10:31] LABS: Hematocrit 30.7 % (35.3-44.9); Hemoglobin 9.7 g/dL (11.5-15.4)
== END 2021-09-13 13:20 | disposition home or self-care (01) ==
LOC: EMEROOARM 16:50 → 3BNU 16:50 → SUATTDRO 20:32 → 3BNU 21:28
PROVIDERS: ADMIT Internal Medicine; ATTEND Registered Nurse